=== PATIENT | female | born 1965 | race Caucasian/White ===

== ENCOUNTER 2023-03-26 13:59 | Emergency (ER) | payer BC, SELFPAY ==
[2023-03-26 14:01] VITALS: BP 138/83; PULSE 88; RESP 14; TEMP 37.2; O2SAT 99; BMI 21.9
--- NOTE | 2023-03-26 15:41 | HMH.EDGENADL ---
Discharge Plan Disposition Patient Disposition: Home, Self-Care Chief Complaint: Recheck/Abnormal Lab/Rx Referrals Follow up/Referrals: Provider,Referral, [Primary Care Provider] - See instructions Activity Restrictions/Add. Instructions Additional Instructions/Restrictions: Maintain follow-up with your primary surgeon. Milk drain tubing as described and demonstrated every few hours to maintain patency. Discuss need for drain flushing with either declotting agents, or sterile saline with your surgeon. Call your family doctor to establish care for this visit to the emergency department and schedule follow-up within 48 hours to ensure improvement. If you have any worsening of your condition or any other concerning signs or symptoms, return to the emergency department or your primary care doctor for further evaluation. Clinical Impressions Clinical Impression: Postoperative bleeding from incision Discharge ED Provider: Anton Philip General Adult HPI General Chief complaint: Recheck/Abnormal Lab/Rx Stated complaint: post op 03/20, drain tube not draining Time Seen by Provider: 03/26/23 14:52 Mode of Arrival: Ambulatory Source of Information: Patient Limitations: No Limitations Description of Symptoms (Recalled from ER Triage Doc. by RN): 57 yo F presents to ED with c/o left breast drainage device not draining. pt reports that she had a double masectomy on 03/20/23. yesterday pt began to notice that her grzegorz drainge on left incision was not draining. and pt noticed bruisingand swelling under dressing. History of Present Illness HPI narrative: This is a 57-year-old female with history of right-sided breast carcinoma status post double mastectomy on 03/20 presenting with concern for drain issue. Surgery was done at [facility]. She is in town visiting her daughter. Patient had drains placed in bilateral breast. States that right breast drain is draining normally, left breast drain has stopped draining as of last night, 03/25. She states she feels as if the boob is coming back up on the left, which she knows is abnormal. No fevers, chills, nausea or vomiting. No associated pain, weakness, bleeding elsewhere. Patient states that she called surgery center today, they recommended maintaining follow-up on Thursday, 03/31, however patient came to the emergency department given concern for left-sided breast swelling and decreased drain output. Related Data Allergies Allergy/AdvReac Type Severity Reaction Status Date / Time enoxaparin [From Lovenox] Allergy Verified 03/26/23 15:56 [facility] Disclaimer: The information contained in this section may have been updated after the patient was seen, as this information can be updated by other users. Social History Smoking Status: Current every day smoker alcohol intake: never current occupational status: unemployed Travel in the last 8 weeks: None ROS Obtained: Yes All systems reviewed & no additional complaints except as documented Physical Exam General General appearance: alert, in no apparent distress and other ( ) Head Head exam: atraumatic and normocephalic Eye Eye exam: Present normal appearance, PERRL and EOMI ENT ENT exam: Present mucous membranes moist Neck Neck exam: Present normal inspection, full ROM and trachea midline Chest Chest inspection: Present tenderness and other (Significant bruising bilaterally. Wound dressings clean, dry, intact bilaterally. Right drain site within normal limits draining serosanguineous fluid. Left drain site with nothing in bulb. Sanguinous, dark red drainage at site of drain insertion however) Respiratory Respiratory exam: Absent respiratory distress, wheezes, stridor, accessory muscle use or prolonged expiratory phase Cardiovascular Cardiovascular exam: Present regular rate and normal rhythm Abdominal Exam Abdominal exam: Present soft; Absent distention, tenderness, guarding, rebound, rigidity or normal bowel soun
--- NOTE | 2023-03-26 15:56 | PC.NURSE ---
pts dressing on left side, removed and replaced with sterile technique. 30 cc emptied from left grzegorz drain
[2023-03-26 16:40] VITALS: BP 130/80; PULSE 80; RESP 18; TEMP 36.8; O2SAT 97
== END 2023-03-26 17:03 | disposition home or self-care (01) ==
PROVIDERS: Emergency Provider Emergency Medicine
DX: L76.22 Postprocedural hemorrhage of skin and subcutaneous tissue following other procedure (principal); F17.200 Nicotine dependence, unspecified, uncomplicated; Y83.8 Other surgical procedures as the cause of abnormal reaction of the patient, or of later complication, without mention of misadventure at the time of the procedure; C50.911 Malignant neoplasm of unspecified site of right female breast
CPT/HCPCS: 99282

== ENCOUNTER 2025-04-18 14:40 | Outpatient (CLI) | payer MEDICAID, SELFPAY ==
--- OUTSIDE RECORDS SUMMARY | 2025-04-18 14:43 | XMS_ITS | Clinical Summary ---
Author Organization [facility] nter Address [address] [place] [address] Care Team Providers Care Hat Binder Name Role Phone Maria Teresa Bai Unavailable Unavailable Karen Sparks MD Unavailable [phone] Maria Ines Douglas NP Primary Care Provider [phone] Allergies Active Allergy Reactions Criticality Noted Date Comments Enoxaparin 01/06/2023 Medications levothyroxine (Synthroid, Levoxyl) 200 MCG tablet Take 1 tablet (200 mcg) by mouth before breakfast. Take day of surgery Active ibuprofen 800 MG tablet Take 1 tablet (800 mg) by mouth every 6 (six) hours if needed for mild pain (1-4). Hold day of surgery Active multivitamin-ir oa-mhexthzf-rfe ic acid (Centrum) chewable tablet Chew 1 tablet in the morning. Hold day of surgery Active cyanocobalamin (Vitamin B-12) 1000 MCG tablet Take 1 tablet (1,000 mcg) by mouth in the morning. Hold day of surgery Active Glyxambi 25-5 MG Take 1 tablet by mouth 1 (one) time each day. Hold day of surgery 3 Active albuterol (ProAir HFA) 108 (90 Base) MCG/ACT inhaler Inhale 2 puffs every 4 (four) hours. May use day of surgery Active hydroCHLOROthia zide (HYDRODiuril) 12.5 MG tablet Take 1 tablet (12.5 mg) by mouth if needed each day. Hold day surgery Active potassium chloride CR (Klor-Con M10) 10 MEQ ER tablet Take 1 tablet (10 mEq) by mouth in the morning. Do not crush or chew. Hold day of surgery Active HYDROcodone-lauro taminophen ([place]) 5-325 MG tablet Take 1 tablet by mouth every 6 (six) hours if needed for severe pain (8-10). 30 tablet 3 Active Additional Information Patient not taking.Reported on 06/13/2024 amoxicillin-cla vulanate (Augmentin) 875-125 MG tablet Take 1 tablet by mouth in the morning and at bedtime. 3 Active ergocalciferol (Vitamin D-2) 1.25 MG (64498 UT) capsule Take 1 capsule (1.25 mg) by mouth 1 (one) time per week. 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 given that bilateral mastectomies have been completed with the overall very small size of the invasive component no further risk reduction is indicated with endocrine therapy as risks may outweigh benefits. Will continue surveillance only with clinical exams. She also has the h/o of anal cancer, however on review of chart it was noted CEA was elevated in 2020 which typically is not with squamous histology and she does not smoke. Most recent biopsy of anal canal was negative. 06/13/24: clinically KE on exam Will proceed with LD CT chest for lung cancer screening F/u 6 months Assessment & Plan (05/19/2023 1:43 PM EDT): IDC of the right breast Pathology, stage and NCCN guidelines reviewed today and copies given. given that bilateral mastectomies have been completed with the overall very small size of the invasive component no further risk reduction is indicated with endocrine therapy as risks may outweigh benefits. Will continue surveillance only with clinical exams. She also has the h/o of anal cancer, however on review of chart it was noted CEA was elevated in 2020 which typically is not with squamous histology and she does not smoke. Most recent biopsy of anal canal was negative but on f/u will repeat the CEA and labs. Resolved Problems Problem Noted Date Diagnosed Date Resolved Date Abnormal mammogram 01/21/2023 3 Abnormal finding on breast imaging 01/06/2023 05/19/2023 Family History Medical History Relation Name Comments Lung cancer Father Relation Name Status Comments Father Social History Tobacco Use Types Packs/Day Years Used Date Smoking Tobacco: Every Day Cigarettes Passive Smoke Exposure: Current Smokeless Tobacco: Never Tobacco Cessation:Ready to Q uit: No; Counseling Given: No Alcohol Use Standard Drinks/Week Comments Not Currently 0 (1 standard drink = 0.6 oz pur e alcohol) Mixed drink occasionally Humiliation, Afraid, Rape, and Kick questionnair e Answer Date Recorded Within the last year, have y ou been afraid of your partner or ex-partner? No 04/09/2023 Within the last year, have y ou been humiliated or emotionally abused in other ways by your partner or ex-partner? No Within the last year, have y ou been kicked, hit, slapped, or otherwise physically hurt by your partner or ex-partner? No 04/09/2023 Within the last year, have y ou been raped or forced to have any kind of sexual activity by your partner or ex-partner? No 04/09/2023 Social Connection and Isolation Panel Answer Date Recorded In a typical week, how many times do you talk on the phone with family, friends, or neighbors? Three times a week 04/09/2023 How often do you get togethe r with friends or relatives? Three times a week 04/09/2023 How often do you attend chur ch or holiness services? More than 4 times per year 04/09/2023 Do you belong to any clubs o r organizations such as restoration groups, unions, fraternal or athletic groups, or school groups? No 04/09/2023 How often do you attend meet ings of the clubs or organizations you belong to? More than 4 times per year 04/09/2023 Are you , , di vorced, , never , or living with a partner? 04/09/2023 AUDIT-C Answer Date Recorded Q1: How often do you have a drink containing alcohol? Never 04/08/2023 Q2: How many drinks containi ng alcohol do you have on a typical day when you are drinking? Patient does not drink Q3: How often do you have si x or more drinks on one occasion? Never 04/08/2023 Overall Financial Resource Strain (CARDIA) Answe r Date Recorded How hard is it for you to pa y for the very basics like food, housing, medical care, and heating? Not very hard 04/09/2023 PHQ-2 Answer Date Recorded Patient Health Questionnaire-2 Score 0 04/09/2023 [facility] - Occupational Stress Questionnaire Answer Date Recorded Do you feel stress - tense, restless, nervous, or anxious, or unable to sleep at night because your mind is troubled all the time - these days? Only a little 04/09/2023 Exercise Vital Sign Answer Date Recorde d On average, how many days pe r week do you engage in moderate to strenuous exercise (like a brisk walk)? 0 days 04/08/2023 On average, how many minutes do you engage in exercise at this level? 0 min 04/08/2023 Hunger Vital Sign Answer Date Recorded Within the past 12 months, y ou worried that your food would run out before you got the money to buy more. Never true 04/09/20 23 Within the past 12 months, t he food you bought just didn't last and you didn't have money to get more. Never true 04/09/2023 PRAPARE - Transportation Answer Date Re corded In the past 12 months, has l ack of transportation kept you from medical appointments or from getting medications? No 03/21 In the past 12 months, has l ack of transportation kept you from meetings, work, or from getting things needed for daily living? No 04/09/2023 Comments No Sex and Gender Information Value Date Recorded Sex Assigned at Female 09/25/2021 10:55 AM EST Legal Sex Female 10:55 AM EST Gender Identity Not on file Sexual Orientation Not on file Last Filed Vital Signs Vital Sign Reading Time Taken Comments Blood Pressure 164/74 06/13/2024 1:44 PM EST Pulse 87 06/13/2024 1:44 PM EST Temperature 37.1 C (98.7 F) 06/13/2024 1:44 PM EST Respiratory Rate 18 06/13/2024 1:44 PM EST Oxygen Saturation 94% 06/13/2024 1:44 PM EST Inhaled Oxygen Concentration - - Weight 67.9 kg (149 lb 12.5 oz) 06/13/2024 1:44 PM EST Height 165.1 cm (5' 5 ) 04/23/2023 3:22 PM EDT Body Mass Index 24.92 04/23/2023 3:22 PM EDT Plan of Treatment Health Maintenance Due Date Last Done Comments CT Colonography 1965 ColoGuard Screening 1965 Colonoscopy 1965 Colorectal Cancer Screening 1965 FIT-DNA 1965 FIT 1965 FOBT 1965 Sigmoidoscopy 1965 MMR Vaccines (1 of 1 - Stand nancy series) 1964 DTaP/Tdap/Td Vaccines (1 - Tdap) 1982 Pneumococcal Vaccine (1 of 2 - PCV) 1982 Pap Smear 1984 Cervical Cancer Screening 1993 HPV/Cotest 1993 Influenza Vaccine (#1) 2025 RSV 60+ and patient s (1 - 1-dose 75+ series) 2038 RSV under 20 month Aged Out No longer eligible based on patient's age to complete this topic Additional Health Concerns Infection Onset Date Last Indicated MRSA (other) Comment:Left breast + MRSA 04/08/23 Alonso Nitin Sanchez RN 04/13/23 8:25 AM 04/08/2023 04/08/2023 Insurance [phone] (Work) [address] [address] [facility] MEDICAID Advance Directives * Full Code (Latest Code Status on File) Date Activated Date Inactivated Comments 04/08/2023 10:17 PM 04/10/2023 6:32 PM * Full Code Date Activated Date Inactivated Comments 03/20/2023 11:56 AM 03/20/2023 3:28 PM * Full Code Date Activated Date Inactivated Comments 01/29/2023 10:04 AM 01/29/2023 1:28 PM * Full Code Date Activated Date Inactivated Comments 01/16/2023 10:05 AM 01/16/2023 1:53 PM Care Teams Hat Binder Relationship Specialty Start Date End Date Maria Ines Douglas NP [address] [facility], [facility] [place] [address] PCP - General Family Medicine 06/13/24 Maria Teresa Bai [address] [place] [address] Nurse Navigator 04/03/23 Karen Sparks MD [address] [place] [address] Consulting Physician Oncology 04/23/23
--- OUTSIDE RECORDS SUMMARY | 2025-04-18 14:43 | XMS_ITS | Encounter Summary ---
Author Organization [facility] Address [address] [place] [address] Care Team Providers Care Pack Changer Name Role Phone Armaan Stafford DO Unavailable [phone] Edgar Bishop MD Primary Care Provider [phone] Nelsy Casey APRN Primary Care Provider [phone] Jg Russo MD Unavailable [phone] Encounter Details Date Type Department Care Team (Late st Contact Info) Description 04/03/2021 Lab Requisition [facility] [address] [place] [address] Jg Russo MD [address] [facility] [address] [place] [id number] Polyp of colon Social History Tobacco Use Types Packs/Day Years Used Date Smoking Tobacco: Never Assessed Comments Unknown Sex and Gender Information Value Date Recorded Sex Assigned at Not on file Legal Sex Female 8:23 PM EDT Gender Identity Not on file Sexual Orientation Not on file COVID-19 Exposure Response Date Recorded In the last month, have you been in contact with someone who was confirmed or suspected to have Coronavirus / COVID-19? No / Unsure 04/05/2021 8:12 AM EDT documented as of this encounter Plan of Treatment Not on file documented as of this encounter Procedures Procedure Name Priority Date/Time Associated Diagnosis Comments SURGICAL PATHOLOGY CONSULT Routine 04/03/2021 11:58 AM EDT Polyp of colon documented in this encounter Results * Surgical Pathology Consult (04/03/2021 11:58 AM EDT) Case Report Sugical Pathology Consult Case: [id number] Authorizing Provider: Jg Russo MD Collected: 04/03/2021 1158 Ordering Location: [facility] Lab Received: 04/03/2021 1200 Pathologist: Margarette Carrasquillo MD Specimens: A) - Colon, [id number] B) - Rectal, S2 C) - Rectal, [id number] 1 5:53 PM EDT [facility] Final Diagnosis A. OUTSIDE CASE [id number]; 02/06/2017: ASCENDING COLON POLYP, BIOPSY (SPECIMEN 1): - TUBULAR ADENOMA. - NEGATIVE FOR HIGH GRADE DYSPLASIA. TRANSVERSE COLON POLYP, BIOPSY (SPECIMEN 2): - HYPERPLASTIC POLYP. B. OUTSIDE CASE [id number]; 10/01/2020: TRANSVERSE COLON POLYP, BIOPSY (SPECIMEN 1): - HYPERPLASTIC POLYP. RECTAL POLYP, BIOPSY (SPECIMEN 2): - HYPERPLASTIC POLYP. C. OUTSIDE CASE [id number]; 12/12/2020: DISTAL ANAL RECTAL MASS, BIOPSY (SPECIMEN 1): - ATYPICAL EPITHELIOID PROLIFERATION WITH SIGNIFICANT CAUTERY ARTIFACT, SEE NOTE. DISTAL ANAL RECTAL MASS, BIOPSY (SPECIMEN 2): - HYPERPLASTIC SURFACE CHANGES AND CAUTERY ARTIFACT. 1 5:53 PM EDT [facility] at 1753 EDT Comment Block 1FS (case [id number]) shows irregular nests of epithelial-appea ring cells with hyperchromatic nuclei and nuclear pleomorphism in the submucosa/muscul luisa propria. The findings are highly suspicious for malignancy. However, interpretation is limited by the significant cautery artifact and a more definitive diagnosis cannot be rendered. Clinical and radiologic correlation is required. 1 5:53 PM EDT [facility] Clinical Information Rectal and colon polyps 1 5:53 PM EDT [facility] Gross Description A. [id number] Received along with a corresponding pathology report from [facility] are 2 slides labeled outside case: [id number] collected on 02/06/2017. B. [id number] Received along with a corresponding pathology report from [facility] are 2 slides labeled outside case: [id number] collected on 10/01/2020. C. [id number] Received along with a corresponding pathology report from [facility] are 3 slides labeled outside case: [id number] collected on 12/12/2020. 1 5:53 PM EDT [facility] Intradepartmental Consultation with Agreement Dr. Vladislav Nur and Dr. Margret Bradfrod have reviewed case [id number] and agree with the diagnosis of atypia. 1 5:53 PM EDT [facility] Tissue Colon structure / Unknown 04/03/2021 11:58 AM EDT 04/03/2021 12:00 PM EDT Tissue specimen (specimen) Specimen from rectum / Unknown 04/03/2021 11:58 AM EDT 04/03/2021 12:00 PM EDT Tissue specimen (specimen) Specimen from rectum / Unknown 04/03/2021 11:58 AM EDT 04/03/2021 12:00 PM EDT Jg Russo MD LAB PATHOLOGY ORDERABLES Fin al Result Performing Organization Address City/State/[facility] Co de Phone Number [facility]ALTH[facility]ARE [facility] [address] [place] [address] documented in this encounter Visit Diagnoses Diagnosis Polyp of colon Benign neoplasm of colon documented in this encounter Care Teams Pack Changer Relationship Specialty Start Date End Date Edgar Bishop MD [address] [place] [address] PCP - General 04/05/21 04/10/21 Nelsy Casey APRN [address] [place] [address] [address] [place] [id number] PCP - General 04/11/21 Armaan Stafford DO [address] [place] [address] Referring Physician 04/05/21 Jg Russo MD [address] [address] Surgeon Colon and Rectal Surgery 06/05/21 documented as of this encounter
--- OUTSIDE RECORDS SUMMARY | 2025-04-18 14:43 | XMS_ITS | Encounter Summary ---
Author Organization [facility] Address [address] [place] [address] Care Team Providers Care Wastewater Analyst Name Role Phone Armaan Stafford DO Unavailable [phone] Edgar Bishop MD Primary Care Provider [phone] Nelsy Casey APRN Primary Care Provider [phone] Jg Russo MD Unavailable [phone] Encounter Details Date Type Department Care Team (Late st Contact Info) Description 03/29/2021 Lab Requisition [facility] [address] [place] [address] Jg Russo MD [address] [facility] [address] [place] [id number] Other specified diseases of anus and rectum Social History Tobacco Use Types Packs/Day Years Used Date Smoking Tobacco: Never Assessed Comments Unknown Sex and Gender Information Value Date Recorded Sex Assigned at Not on file Legal Sex Female 8:23 PM EDT Gender Identity Not on file Sexual Orientation Not on file documented as of this encounter Plan of Treatment Not on file documented as of this encounter Procedures Procedure Name Priority Date/Time Associated Diagnosis Comments SURGICAL PATHOLOGY CONSULT Routine 03/29/2021 11:10 AM EDT Other specified diseases of anus and rectum documented in this encounter Results * Surgical Pathology Consult (03/29/2021 11:10 AM EDT) Case Report Sugical Pathology Consult Case: [id number] Authorizing Provider: Jg Russo MD Collected: 03/29/2021 1110 Ordering Location: [facility] Lab Received: 03/29/2021 1111 Pathologist: Vladislav Nur MD Specimen: Perineal Biopsy, [id number] 04/03/2021 4:43 PM EDT [facility] Final Diagnosis PERIANAL MASS, BIOPSY (OUTSIDE: [id number], COLLECTION: 01/18/2021): - INVASIVE SQUAMOUS CELL CARCINOMA, WITH BASALOID FEATURES 04/03/2021 4:43 PM EDT [facility] at 1643 EDT Clinical Information Perianal mass 04/03/2021 4:43 PM EDT [facility] Microscopic Description The submitted P16 immunohistochemical stain is interpreted as positive (diffuse, block-like). Controls are adequate. 04/03/2021 4:43 PM EDT [facility] Gross Description A. [id number] Received along with a corresponding pathology report from [facility] are 2 slide(s) labeled outside case: [id number] collected on 01/18/2021. 04/03/2021 4:43 PM EDT [facility] Tissue Structure of perineal body / Unknown 03/29/2021 11:10 AM EDT 03/29/2021 11:11 AM EDT us Jg Russo MD LAB PATHOLOGY ORDERABLES Fin al Result Performing Organization Address City/State/[facility] Co de Phone Number [facility]ARE [facility] [address] [place] [address] documented in this encounter Visit Diagnoses Diagnosis Other specified diseases of anus and rectum documented in this encounter Care Teams Wastewater Analyst Relationship Specialty Start Date End Date Edgar Bishop MD [address] [place] [address] PCP - General 04/05/21 04/10/21 Nelsy Casey APRN [address] [place] [address] [address] [place] [id number] PCP - General 04/11/21 Armaan Stafford DO [address] [place] [address] Referring Physician 04/05/21 Jg Russo MD [address] [id number] Surgeon Colon and Rectal Surgery 06/05/21 documented as of this encounter
--- OUTSIDE RECORDS SUMMARY | 2025-04-18 14:43 | XMS_ITS ---
Author Organization [facility] nter Address [address] [place] [address] Care Team Providers Care Journeyman Pipefitter Name Role Phone Maria Teresa Bai Unavailable Unavailable Karen Sparks MD Unavailable [phone] Maria Ines Douglas NP Primary Care Provider [phone] Active Problems Problem Noted Date Diagnosed Date History of anal cancer 05/19/2023 Abscess 04/08/2023 Malignant neoplasm of overla pping sites of right breast in female, estrogen receptor positive 03/16/2023 Cancer Staging:Pathologic stage from 03/20/2023:Stage IA(pT1a, pN0(sn), cM0, G2, ER+, NC+, HER2-) - Signed by Karen Sparks MD on 05/19/2023 Clinical stage from 05/11/2024:Stage IA(cT1b, cN0, cM0, G2, ER+, NC+, HER2-) - Signed by Rodrigo Diana MD [...] f/u will repeat the CEA and labs. Current Treatment and Therapy Plans No current plan information found. Past Treatment and Therapy Plans No past plan information found. Lifetime Dose Tracking * Chemical Lifetime Dose Automatic Entry Manual Entr y Mitomycin 10.52 mg/m2 (20 mg) 0 mg/m2 (0 mg) 10.52 mg/m2 (20 mg) CTDIvol 14.72 mGy 14.72 mGy 0 mGy Resolved Problems Problem Noted Date Diagnosed Date Resolved Date Abnormal mammogram 01/21/2023 3 Abnormal finding on breast imaging 01/06/2023 05/19/2023
--- OUTSIDE RECORDS SUMMARY | 2025-04-18 14:43 | XMS_ITS | Clinical Summary ---
Author Organization [facility] Address [address] [place] [address] Care Team Providers Care Continuous Towel Roller Name Role Phone Armaan Stafford DO Unavailable [phone] Nelsy Casey APRN Primary Care Provider [phone] Jg Russo MD Unavailable [phone] Allergies Active Allergy Reactions Criticality Noted Date Comments Enoxaparin Other - please docum ent in the comment field Low 04/05/2021 Severe bruising, tongue turned black, muscle weakness Other Other - please docum ent in the comment field Low 06/06/2021 Adhesives on surgical tape causes blisters Medications levothyroxine (Synthroid, Levoxyl) 150 MCG tablet Take 150 mcg by mouth 1 (one) time each day before breakfast. Active metFORMIN XR (Glucophage-XR) 500 MG 24 hr tablet Take 500 mg by mouth 1 (one) time each day with dinner. Do not crush, chew, or split. Active hydroCHLOROthia zide (HYDRODiuril) 25 MG tablet Take 25 mg by mouth 1 (one) time each day. Active albuterol 0.63 MG/3ML nebulizer solution Take 0.63 mg by nebulization every 6 (six) hours if needed for wheezing. Active ibuprofen 800 MG tablet Take 800 mg by mouth 2 (two) times a day. Active aspirin 325 MG tablet Take 325 mg by mouth 1 (one) time each day. Active Active Problems Problem Noted Date Diagnosed Date HTN (hypertension) 08/01/2021 High cholesterol 08/01/2021 Hypothyroidism 08/01/2021 Chronic obstructive pulmonary disease 08/01/2021 Asthma 08/01/2021 Anal cancer 04/17/2021 Family History Medical History Relation Name Comments Lung cancer Father Relation Name Status Comments Father Social History Tobacco Use Types Packs/Day Years Used Date Smoking Tobacco: Every Day Cigarettes 0.5 46 Smokeless Tobacco: Never Alcohol Use Standard Drinks/Week Comments Not Currently 0 (1 standard drink = 0.6 oz pur e alcohol) Comments Unknown Sex and Gender Information Value Date Recorded Sex Assigned at Not on file Legal Sex Female 8:23 PM EDT Gender Identity Not on file Sexual Orientation Not on file Last Filed Vital Signs Vital Sign Reading Time Taken Comments Blood Pressure 105/61 08/02/2021 3:05 PM EST Pulse 53 08/02/2021 3:05 PM EST Temperature 36.5 C (97.7 F) 08/02/2021 2:50 PM EST Respiratory Rate 13 08/02/2021 3:05 PM EST Oxygen Saturation 93% 08/02/2021 3:05 PM EST Inhaled Oxygen Concentration - - Weight 78.9 kg (174 lb) 08/02/2021 12:38 PM EST Height 165.1 cm (5' 5 ) 08/02/2021 12:38 PM EST Body Mass Index 28.96 08/02/2021 12:38 PM EST Plan of Treatment Health Maintenance Due Date Last Done Comments [facility]-Depression Screening 1963 [facility]-Infant/Child/Adol SDOH Screenings 1963 [facility]- SDOH Screenings 1981 [facility]-Adult SDOH Screenings 1981 [facility]-DTaP,Tdap,and Td Vaccine s (1 - Tdap) 1982 CT Colonography 2008 Colonoscopy 2008 FIT-DNA 2008 FIT 2008 FOBT 2008 Sigmoidoscopy 2008 [facility]-Colorectal Cancer Screening 2008 [facility]-Pneumococcal Vaccine: 50 + Years (1 of 1 - PCV) 2013 [facility]-Zoster Vaccines (1 of 2) 2013 [facility]-Pap Smear 04/05/2024 04/05/2021 [id number] Vaccine ( - 2023- season) 2025 [facility]-Influenza Vaccine (#1) 2025 [facility]-Cervical Cancer Screening 04/05/2026 [facility]-HPV/Cotest 04/05/2026 04/05/2021, 04/05/2021 [facility]-RSV Vaccine: 60+ Years o r (1 - 1-dose 75+ series) 2038 HPV Vaccines Aged Out No longer eligi ble based on patient's age to complete this topic [facility]-HIB Vaccines Aged Out No longer e ligible based on patient's age to complete this topic [facility]-Hepatitis A Vaccines Aged Out No longer eligible based on patient's age to complete this topic UKY-IPV Vaccines Aged Out No longer e ligible based on patient's age to complete this topic [facility]-Rotavirus Vaccines Aged Out No lo nger eligible based on patient's age to complete this topic Procedures Procedure Name Priority Date/Time Associated Diagnosis Comments PAP TEST - CYTOLOGY Routine 04/05/2021 1 1:04 AM EDT Anal cancer (CMS/HCC) from Last 3 Months or Most Recently Relevant to Health Maintenance Results * (ABNORMAL) Pap Test (04/05/2021 11:04 AM EDT) Case Report Cytology Case: [id number] Authorizing Provider: Zulay Rivera MD Collected: 04/05/2021 1104 Ordering Location: [facility] Gynecology Received: 04/08/2021 0944 First Screen: LEE Kennedy Pathologist: Sonny Andrade MD Specimen: ThinPrep Pap Test, Liquid-Based Cervical/Vaginal, CERVICAL/VAGINAL 04/22/2021 4:46 PM EDT [facility] Interpretation LOW GRADE SQUAMOUS INTRAEPITHELIAL LESION (LSIL)(A) 04/22/2021 4:46 PM EDT [facility] at 1646 EDT Other Findings Shift in yuliet suggestive of bacterial vaginosis. 04/22/2021 4:46 PM EDT [facility] Specimen Adequacy Satisfactory for evaluation; endocervical/lopez sformation zone component present. Slide imaged by the ThinPrep Imaging system and selected 22 [address] reviewed then full manual screening. 04/22/2021 4:46 PM EDT [facility] Cervical cytology is a screening test primarily for squamous cancers and precursors and has associated false negative and positive results. New technologies such as liquid based sampling may decrease but will not eliminate all false negative results. Regular screening and follow-up of unexplained clinical signs and symptoms are recommended to minimize false negative results. Please see the ASCCP website (www.asccp.org)fo r followup recommendations. If HPV testing was requested, correlation with the results is suggested (please call Microbiology at [phone] for results). 04/22/2021 4:46 PM EDT [facility] Menstrual Status Post-Menopausal 10/2020 4:46 PM EDT [facility] Contraceptive History Not Applicable 04/22/2021 4:46 PM EDT [facility] Last Menstrual Period 04/05/2002 04/22/2021 4:46 PM EDT [facility] Screening Type Routine Screen 2020 4:46 PM EDT [facility] High Risk? No 04/22/2021 4:46 PM EDT [facility] HPV Testing Requested? Request HPV Testing Regardless of Pap Test Findings 04/22/2021 4:46 PM EDT [facility] Previous Cancer History Yes 04/22/2021 4:46 PM EDT [facility] Comment:Rectal Treatment History Chemotherapy Radiation Therapy 04/22/2021 4:46 PM EDT [facility] Swab Vaginal and cervical cytologic material / Unknown Non-blood Collection / Unknown 04/05/2021 11:04 AM EDT 04/08/2021 9:44 AM EDT Zulay Rivera MD LAB CYTOLOGY ORDERABLES Final Result [facility] [address] [place] [address] from Last 3 Months or Most Recently Relevant to Health Maintenance Insurance TI[employer] Care Teams Continuous Towel Roller Relationship Specialty Start Date End Date Nelsy Casey, EDUCATIONAL DIAGNOSTICIAN [address] [place] [id number] PCP - General 04/11/21 Armaan Stafford DO [address] [place] [address] Referring Physician 04/05/21 Jg Russo MD [address] [address] Surgeon Colon and Rectal Surgery 06/05/21
--- OUTSIDE RECORDS SUMMARY | 2025-04-18 14:43 | XMS_ITS | Encounter Summary ---
Author Organization [facility] nter Address [address] [place] [address] Care Team Providers Care Service Rig Operator Name Role Phone Irina Samantha Ferrer LOCKS INSPECTOR Primary Care Provider [phone] Maria Teresa Bai Unavailable Unavailable Karen Sparks MD Unavailable [phone] Maria Ines Douglas LOCKS INSPECTOR Primary Care Provider [phone] Encounter Details Date Type Department Care Team (Late st Contact Info) Description 01/28/2023 Telephone [facility] [address] 3[address] [place] [id number] Fina Fajardo, RN [address] [place] [address] Social History Tobacco Use Types Packs/Day Years Used Date Smoking Tobacco: Every Day Cigarettes Smokeless Tobacco: Never Alcohol Use Standard Drinks/Week Comments Yes 0 (1 standard drink = 0.6 oz pur e alcohol) Mixed drink occasionally Comments No Sex and Gender Information Value Date Recorded Sex Assigned at Female 09/25/2021 10:55 AM EST Legal Sex Female 10:55 AM EST Gender Identity Not on file Sexual Orientation Not on file COVID-19 Exposure Response Date Recorded In the last 10 days, have yo u been in contact with someone who was confirmed or suspected to have Coronavirus/COVID-19? No / Unsure 01/29/2023 10:01 AM EDT documented as of this encounter Plan of Treatment Not on file documented as of this encounter Visit Diagnoses Not on filedocumented in this encounter Additional Health Concerns Infection Onset Date Last Indicated Resolved Time MRSA (other) Comment:Left breast + MRSA 04/08/23 Alonso Sanchez RN 04/13/23 8:25 AM 04/08/2023 04/08/2023 documented as of this encounter Care Teams Service Rig Operator Relationship Specialty Start Date End Date Samantha Arevalo NP [address] [place] [address] PCP - General Family Medicine 01/16/23 06/12/24 Maria Ines Douglas NP [address] [place] [address] PCP - General Family Medicine 06/13/24 Maria Teresa Bai [address] [place] [address] Nurse Navigator 04/03/23 Karen Sparks MD [address] [place] [address] Consulting Physician Oncology 04/23/23 documented as of this encounter
== END 2025-04-18 23:59 | disposition home or self-care (01) ==
LOC: LAB 14:41
PROVIDERS: PCP Nurse Practitioner Family; Visit Provider Internal Medicine
DX: E78.5 Hyperlipidemia, unspecified (principal); I10 Essential (primary) hypertension

== ENCOUNTER 2025-04-19 10:08 | Outpatient (CLI) | payer MEDICAID, SELFPAY ==
--- OUTSIDE RECORDS SUMMARY | 2023-11-13 04:45 | XMS_ITS ---
Author Organization [facility] Address [address] [place] [address] Care Team Providers Care Engine Generator Assembler Name Role Phone Samantha Arevalo Primary Care Provider REASON FOR VISIT follow up NS Social History Sex Assigned At : Social History Observation Description Sex Assigned At Female Encounters Encounter Location Date Provider Diagnosis [facility] [place] [address] [place] [phone] 11/13/2023 Samantha Arevalo Plan Of Treatment No Information Progress Notes * Anjelica GALVEZ EDOB:1965 ( 59 yo F)Acc No.[id number]:11/13/2023 Progress Notes Patient: Anjelica KIRKPATRICK Provider: Mercy Arevalo APRN :1965 A ge:58 Y S ex:Female Date:11/13/2023 Address:[address] [place] [phone] Subjective: * Chief Complaints: * 1 . follow up NS. * Medical History: Objective: * Vitals: Assessment: Plan: * Treatment: * Billing Information: * Visit Code: * Procedure Codes: * Electronic signature of Maria Elena Arevalo on 04/19/2025 at 10:44 AM EDT Sign off status: Pending * Provider: Mercy Arevalo APRN Date: 0 11/13/2023 Generated for Printi ng/Faxing/eTransmitting on: 1 10:44 AM EDT
--- OUTSIDE RECORDS SUMMARY | 2024-01-08 05:15 | XMS_ITS ---
Author Organization [facility] Address [address] [place] [address] [address] [place] [address] Care Team Providers Care Hand Laminator Name Role Phone Irina Samantha Primary Care Provider [phone] Allergies No Known Allergies REASON FOR VISIT [...] phone, visiting friends or family, going to orthodox or club meetings) 3 to 5 times a week How stressed are you? Stress is when someone feels tense, nervous, anxious, or cant sleep at night because their mind is troubled Not at all In the past year have you sp ent more than 2 nights in a row in a retirement, correction, care home center, or juvenile correctional facility? No Do [...] Negative Encounters Encounter Location Date Provider Diagnosis [facility] [address] [place] [phone] 01/08/2024 Samantha Arevalo Encounter for screening for malignant neoplasm of cervix Z12.4 Assessments Encounter Date Diagnosis (ICD Code) Assessment Notes Treatment Notes Treatment Clinical Notes Section Notes 01/08/2024 Encounter for screening for malignant neoplasm of cervix (ICD-10 - Z12.4) Importance of cancer screenings for early detection explained to patient. 01/08/2024 Other Patient informed that [facility] has oncall providers available 09/02 by dialing regular clinic number. Also informed patient to sign up for the patient portal and explained process and advantages of using the portal including communication with provider, refill requests, review labs, etc. Pt also reminded to bring all medications to each visit. Also reviewed current [facility] and state guidelines and recommendations for preventing spread of COVID19. V/U Plan Of Treatment Treatment Notes Assessment Notes Encounter for screening for malignant neoplasm of cervix Importance of cancer screenings for edin y detection explained to patient. Other Patient informed that [facility] has oncall providers available 09/02 by dialing regular clinic number. Also informed patient to sign up for the patient portal and explained process and advantages of using the portal including communication with provider, refill requests, review labs, etc. Pt also reminded to bring all medications to each visit. Also reviewed current [facility] and state guidelines and recommendations for preventing spread of COVID19. 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 [...] disease with acute lower respiratory infection. * [employer] History: A bnormal pap smear N ONE. L AST MAMMOGRAM 0 01/04/2015 [facility], pt declines mammo at this time. 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 Stress is when someone feels tense, nervous, anxious, or cant sleep at night because their mind is troubled N ot at all I n the past year have you spent more than 2 nights in a row in a retirement, correction, care home center, or juvenile correctional facility? N o [...] 2. O thers Notes: Patient informed that [facility] has oncall providers available 09/02 by [...] Medicine: WOMEN'S YOUR PREVENTIVE WELLNESS PLAN: B NV, Height, and Weight: My BMI, height, and [...] and urged to quit. 0 01/08/2024 CALL [phone] Relapse prevention: D iscussed the importance of a supportive environment and helped identify them. C are goal follow-up Counseling for Dietary Consulatation Provided Y es Avoid sugary drinks and snacks. Counseling for BMI Management Provided?Yes H igh Risk Sexual Behavior N o high risk sexual behavior. 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
[2025-04-19 10:25] LABS: Hematocrit 49.1 % (37.0-47.0); Hemoglobin 17.5 g/dL (12.2-16.2); Immature Granulocytes % 0.3 %; Mean Corpuscular HGB Conc 35.6 g/dL (31.8-35.4); Mean Corpuscular Hemoglobin 34.5 pg (27.0-31.2); Mean Corpuscular Volume 96.8 fl (81-99); Nucleated Red Blood Cells % 0 %; Platelet Count 210 K/mm3 (142-424); Red Blood Count 5.07 M/mm3 (4.20-5.40); Red Cell Distribution Width-SD 43.8 fL; White Blood Count 7.6 K/mm3 (4.8-10.8)
--- OUTSIDE RECORDS SUMMARY | 2025-04-19 10:45 | XMS_ITS ---
Author Organization [facility] nter Address [address] [place] [address] Care Team Providers Care Survey Coordinator Name Role Phone Maria Teresa Bai Unavailable Unavailable Karen Sparks MD Unavailable [phone] Maria Ines Douglas NP Primary Care Provider [phone] Active Problems Problem Noted Date Diagnosed Date History of anal cancer 05/19/2023 Abscess 04/08/2023 Malignant neoplasm of overla pping sites of right breast in female, estrogen receptor positive 03/16/2023 Cancer Staging:Pathologic stage from 03/20/2023:Stage IA(pT1a, pN0(sn), cM0, G2, ER+, MD+, HER2-) - Signed by Karen Sparks MD on 05/19/2023 Clinical stage from 05/11/2024:Stage IA(cT1b, cN0, cM0, G2, ER+, MD+, HER2-) - Signed by Rodrigo Diana MD [...]
--- OUTSIDE RECORDS SUMMARY | 2025-04-19 10:45 | XMS_ITS | Clinical Summary ---
Author Organization [facility] Address [address] [place] [address] Care Team Providers Care Compliance Field Technician Name Role Phone Armaan Stafford DO Unavailable [phone] Nelsy Casey APRN Primary Care Provider [phone] Jg Russo MD Unavailable [phone] Allergies Active Allergy Reactions Criticality Noted Date [...] Date Last Done Comments [facility]-Depression Screening 1963 [facility]-/Child/Adol SDOH Screenings 1963 [facility]- SDOH Screenings 1981 [facility]-Adult SDOH Screenings 1981 [facility]-DTaP,Tdap,and Td Vaccine s (1 - Tdap) 1982 CT Colonography 2008 Colonoscopy 2008 FIT-DNA 2008 FIT 2008 FOBT 2008 Sigmoidoscopy 2008 [facility]-Colorectal Cancer Screening 2008 [facility]-Pneumococcal Vaccine: 50 + Years (1 of 1 - PCV) 2013 [facility]-Zoster Vaccines (1 of 2) 2013 [facility]-Pap Smear 04/05/2024 04/05/2021 [id number] Vaccine ( - 2023- season) 2025 [facility]-Influenza [...] 11:04 AM EDT) Case Report Cytology Case: [id number] Authorizing Provider: Zulay Rivera MD Collected: 04/05/2021 1104 Ordering Location: [facility] Gynecology Received: 04/08/2021 0944 First Screen: LEE Kennedy Pathologist: Sonny Andrade MD Specimen: ThinPrep Pap Test, Liquid-Based Cervical/Vaginal, CERVICAL/VAGINAL 04/22/2021 4:46 PM EDT [facility] Interpretation LOW GRADE SQUAMOUS INTRAEPITHELIAL LESION (LSIL)(A) 04/22/2021 4:46 PM EDT [facility] at 1646 EDT Other Findings Shift in yuliet suggestive of bacterial vaginosis. 04/22/2021 4:46 PM EDT [facility] Specimen Adequacy Satisfactory for evaluation; endocervical/lopez [...] results is suggested (please call Microbiology at [phone] for results). 04/22/2021 4:46 PM EDT [facility] Menstrual Status Post-Menopausal 10/2020 4:46 PM EDT [facility] Contraceptive History Not Applicable 04/22/2021 4:46 PM EDT [facility] Last Menstrual Period 04/05/2002 04/22/2021 4:46 PM EDT [facility] Screening Type Routine Screen 2020 4:46 PM EDT [facility] High Risk? No 04/22/2021 4:46 PM EDT [facility] HPV Testing Requested? Request HPV Testing Regardless of Pap Test Findings 04/22/2021 4:46 PM EDT [facility] Previous Cancer History Yes 04/22/2021 4:46 PM EDT [facility] Comment:Rectal Treatment History Chemotherapy Radiation Therapy 04/22/2021 4:46 PM EDT [facility] Swab Vaginal and cervical cytologic material / Unknown Non-blood Collection / Unknown 04/05/2021 11:04 AM EDT 04/08/2021 9:44 AM EDT Zulay Rivera MD LAB CYTOLOGY ORDERABLES Final Result [facility] [address] [place] [address] from Last 3 Months or Most Recently Relevant to Health Maintenance Insurance TIARA Care Teams Compliance Field Technician Relationship Specialty Start Date End Date Nelsy Casey, DEFECT CUTTER [address] [place] [address] PCP - General 04/11/21 Armaan Stafford DO [address] [place] [address] Referring Physician 04/05/21 Jg Russo MD [address] [address] Surgeon Colon and Rectal Surgery 06/05/21
--- OUTSIDE RECORDS SUMMARY | 2025-04-19 10:45 | XMS_ITS | Clinical Summary ---
Author Organization [facility] nter Address [address] [place] [address] Care Team Providers Care Gifts Officer Name Role Phone Maria Teresa Bai Unavailable Unavailable Karen Sparks MD Unavailable Maria Ines Douglas NP Primary Care Provider [phone] Allergies Active Allergy Reactions Criticality Noted Date Comments Enoxaparin 01/06/2023 Medications levothyroxine (Synthroid, Levoxyl) 200 MCG tablet Take 1 tablet (200 mcg) by mouth before breakfast. Take day of surgery Active ibuprofen 800 MG tablet Take 1 tablet (800 mg) by mouth every 6 (six) hours if needed for mild pain (1-4). Hold day of surgery Active multivitamin-ir wf-gedwubfk-qwf ic acid (Centrum) chewable tablet Chew 1 [...] Hold day of surgery Active HYDROcodone-lauro taminophen ([place]) 5-325 MG tablet Take 1 tablet by mouth every 6 (six) hours if needed for severe pain (8-10). 30 tablet 3 Active Additional Information Patient not taking.Reported on 06/13/2024 amoxicillin-cla vulanate (Augmentin) 875-125 MG tablet Take 1 tablet by mouth in the morning and at bedtime. 3 Active ergocalciferol (Vitamin D-2) 1.25 MG (34406 UT) capsule Take 1 capsule (1.25 mg) by mouth 1 (one) time per week. Active Active Problems Problem Noted Date Diagnosed Date History of anal cancer 05/19/2023 Abscess 04/08/2023 Malignant neoplasm of overla pping sites of right breast in female, estrogen receptor positive 03/16/2023 Cancer Staging:Pathologic stage from 03/20/2023:Stage IA(pT1a, pN0(sn), cM0, G2, ER+, CA+, HER2-) - Signed by Karen Sparks MD on 05/19/2023 Clinical stage from 05/11/2024:Stage IA(cT1b, cN0, cM0, G2, ER+, CA+, HER2-) - Signed by Rodrigo Diana MD [...] often do you attend chur ch or jehovah's witness services? More than 4 times per year 04/09/2023 Do you belong to any clubs o r organizations such as confucianism groups, unions, fraternal or athletic groups, or [...] Recorded Patient Health Questionnaire-2 Score 0 04/09/2023 [facility] - Occupational Stress Questionnaire Answer Date Recorded [...] RN 04/13/23 8:25 AM 04/08/2023 04/08/2023 Insurance [phone] (Work) [address] [address] [facility] [place] [address] Advance Directives * Full Code (Latest Code [...] 10:05 AM 01/16/2023 1:53 PM Care Teams Gifts Officer Relationship Specialty Start Date End Date Maria Ines Douglas NP [address] [facility] [place] [address] PCP - General Family Medicine 06/13/24 Maria Teresa Bai [address] [place] [address] Nurse Navigator 04/03/23 Karen Sparks MD [address] [place] [address] Consulting Physician Oncology 04/23/23
--- OUTSIDE RECORDS SUMMARY | 2025-04-19 10:45 | XMS_ITS | Encounter Summary ---
Author Organization [facility] nter Address [address] [place] [address] Care Team Providers Care Sales Clerk Supervisor Name Role Phone Irina Samantha Ferrer OIL HOUSE ATTENDANT Primary Care Provider [phone] Maria Teresa Bai Unavailable Unavailable Karen Sparks MD Unavailable [phone] Maria Ines Douglas OIL HOUSE ATTENDANT Primary Care Provider [phone] Encounter Details Date Type Department Care Team (Late st Contact Info) Description 01/28/[address] 3[address] [place] [phone] Fina Fajardo, RN [address] [place] [address] Social History Tobacco Use Types Packs/Day Years [...] documented as of this encounter Care Teams Sales Clerk Supervisor Relationship Specialty Start Date End Date Samantha Arevalo NP [address] [place] [address] PCP - General Family Medicine 01/16/23 06/12/24 Maria Ines Douglas NP [address] [place] [address] PCP - General Family Medicine 06/13/24 Maria Teresa Bai [address] [place] [address] Nurse Navigator 04/03/23 Karen Sparks MD [address] [facility] [place] [address] Consulting Physician Oncology 04/23/23 documented as of this encounter
--- OUTSIDE RECORDS SUMMARY | 2025-04-19 10:45 | XMS_ITS | Patient Health Record ---
Author Organization [facility] Address [address] [place] [address] [address] [place] [address] Care Team Providers Care Wardrobe Supervisor Name Role Phone Samantha Arevalo Primary Care Provider [phone] Allergies No Known Allergies Reason For Referral No Information Medications Medication SIG (Take, Route, Frequency, Duration) Notes Start Date End Date Status DULoxetine HCl 30 MG 1 capsule Orally Tw ice a day; Duration: 90 days 03/08/2018 Unknown Synthroid 200 MCG 1 tablet on an empty stomach in the morning Orally Once a day; Duration: 90 days Unknown Levothyroxine Sodium 25 MCG 1 tablet in the morning on an empty stomach Orally Once a day; Duration: 90 days Active glipiZIDE 5 MG 1 tablet 30 minutes before breakfast Orally Once a day; Duration: 90 days Active metFORMIN HCl 1000 MG 1 tablet Orally tw ice a day with meals; Duration: 90 days Active ProAir HFA 108 (90 Base) MCG/ACT 2 puffs as needed Inhalation every 4 hrs; Duration: 90 days 12/28/2020 Unknown Metoprolol Succinate ER 50 MG 1 tablet Orally Once a day; Duration: 90 days 04/13/2019 Unknown Multivitamin Plus Iron Adult - as directed Orally Unknown Immunizations Vaccine Route Administration Date Status Comme nts Flucelvax Quad multi dose vial Unknown 05/12/2019 Others FLUCELVAX Quad multi dose vial Unknown 04/19/2020 Administered Flucelvax Quad Prefilled syringe IM Intramuscular 07/23/2022 Administered Flucelvax Quad Prefilled syringe Unknown 10/14/2023 Refused Pneumococcal conjugate PCV 13 Unknown 10/14/2023 Refused Social History Tobacco Use: Social History Observation Description Date Details (start date - stop date) Current Smoker NA - NA Sex Assigned At : Social History Observation Description Sex Assigned At Female Tobacco Use/Smoking Question Answer Notes Are you a current smoker How often do you smoke cigarettes? every day How many cigarettes a day do you smoke? 06-08 Alcohol Screen (Audit-C) Question Answer Notes Did you have a drink containing alcohol in the p ast year? No Points 0 Interpretation Negative PRAPARE Question Answer Notes Date Completed/Updated: 01/08/2024 What is your current housing situation? I have h ousing Are you worried about losing your housing? [...] phone, visiting friends or family, going to nondenominational or club meetings) 3 to 5 times a week How stressed are you? Stress is when someone feels tense, nervous, anxious, or cant sleep at night because their mind is troubled Not at all In the past year have you sp ent more than 2 nights in a row in a senior care, fpc, mcc center, or juvenile correctional facility? No Do [...] reasons? 0 Total Count 0 Interpretation Negative Problems Problem Type SNOMED Code ICD Code Onset Dates Problem Status W/U Status Risk Notes Problem Information temporarily unavailable Vitamin D deficiency, unspecified (E55.9) Active confirmed Problem Information temporarily unavailable Tobacco abuse counseling (Z71.6) Active confirmed Problem Information temporarily unavailable Hyperlipidemia, unspecified (E78.5) Active confirmed Problem Information temporarily unavailable Essential (primary) hypertension (I10) Active confirmed Problem Information temporarily unavailable Hypothyroidism, unspecified (E03.9) Active confirmed Problem Information temporarily unavailable Nicotine dependence, cigarettes, uncomplicated (F17.210) Active confirmed Problem Information temporarily unavailable Chronic fatigue (R53.82) Active confirmed Problem Information temporarily unavailable Tobacco abuse (Z72.0) Active confirmed Problem Information temporarily unavailable Type 2 diabetes mellitus without complication, without long-term current use of insulin (E11.9) Active confirmed Problem Information temporarily unavailable Type 2 diabetes mellitus with hyperglycemia, without long-term current use of insulin (E11.65) 1 Active confirmed Problem Information temporarily unavailable Arthritis (M19.90) Active confirmed Problem Information temporarily unavailable Polycythemia (D75.1) 3 Active confirmed Problem Information temporarily unavailable Abnormal ultrasound of breast (R92.8) Active confirmed Problem Information temporarily unavailable COPD (chronic obstructive pulmonary disease) case management patient (J44.9) Active confirmed Problem Information temporarily unavailable Statin declined (Z53.20) 3 Active confirmed Problem Information temporarily unavailable S/P bilateral mastectomy (Z90.13) 3 Active confirmed Plan Of Treatment Pending Test Test Name Order Date Lipid Profile 09/08/2017 LIPID PANEL 04/06/2017 COMPREHENSIVE METABOLIC PANEL 04/06/2017 COMPREHENSIVE METABOLIC PANEL 09/08/2017 TPO AB ENDPOINT 03/09/2018 T4, FREE 03/09/2018 TSH 04/06/2017 T3, FREE 03/09/2018 ULTRA TSH 12/03/2016 LIPID PROFILE B 12/03/2016 COMPREHENSIVE METABOLIC PANEL 12/03/2016 Complete Blood Count 09/08/2017 ULTRA TSH 06/07/2018 ULTRA TSH 03/09/2018 Vitamin B12 and Folate 06/07/2023 Hemoglobin A1c 12/20/2020 TSH 04/13/2019 CBC With Differential/Platelet 9 CBC With Differential/Platelet 3 Albumin/Creatinine Ratio,Urine 2 Lipid Panel 04/13/2019 Comp. Metabolic Panel (14) 04/13/2019 Mammogram bilateral screening 12/11/2022 Insurance Providers Payer Name Payer Address Payer Phone Subscriber Number Group Number Insured Name Patient Relationship to Insured Coverage Start Date Coverage End Date [employer] [place] [address] [place] [id number] Self - patient is the insured Medications Administered Medication Instructions Date of Administration Dosage Notes Kenalog 40 06/07/2018 40 mg pt tolerated i njection well Rocephin 1gm 06/07/2018 1 g pt tolerated injection well Medical (General) History Medical History History ICD Code Hypothyroidism, unspecified E03.9 Hyperlipidemia, unspecified E78.5 Essential (primary) hypertension I10 Chronic obstructive pulmonary disease wi th acute lower respiratory infection J44.0 Vitamin D deficiency, unspecified E55.9 Body mass index (BMI) 31.0-31.9, adult Z 68.31 Chronic obstructive pulmonary disease wi th acute lower respiratory infection J44.0 Surgical History Surgery Date(Month/Year) Cataract Surgery Right Eye and Left Eye Colposcopy for Cervical Dysplasia times 3 Colonoscopy (Dr Watt) 01/2017 vaginal biopsy (Dermatology in [place]) Tumor removed from sphincter 12/05/20 MASECTOMY 03/20/2023
--- OUTSIDE RECORDS SUMMARY | 2025-04-19 10:45 | XMS_ITS | Encounter Summary ---
Author Organization [facility] Address [address] [place] [address] Care Team Providers Care Paralegal Legal Secretary Name Role Phone Armaan Stafford DO Unavailable [phone] Edgar Bishop MD Primary Care Provider [phone] Nelsy Casey APRN Primary Care Provider +- [phone] Jg Russo MD Unavailable [phone] Encounter Details Date Type Department Care Team (Late st Contact Info) Description 04/03/2021 Lab Requisition [facility] [address] [place] [address] Jg Russo MD [address] [facility] [address] [place] [address] Polyp of colon Social History Tobacco Use [...] EDT) Case Report Sug[facility] Pathology Consult Case: [id number] Authorizing Provider: Jg Russo MD Collected: 04/03/2021 1158 Ordering Location: [facility] Lab Received: 04/03/2021 1200 Pathologist: Margarette Carrasquillo MD Specimens: A) - Colon, 17:S2369 B) - Rectal, S2 C) - Rectal, [id number] 1 5:53 PM EDT [facility] Final Diagnosis A. OUTSIDE CASE [id number]; 02/06/2017: ASCENDING COLON POLYP, BIOPSY (SPECIMEN 1): - TUBULAR ADENOMA. - NEGATIVE FOR HIGH GRADE DYSPLASIA. TRANSVERSE COLON POLYP, BIOPSY (SPECIMEN 2): - HYPERPLASTIC POLYP. B. OUTSIDE CASE [id number]; 10/01/2020: TRANSVERSE COLON POLYP, BIOPSY (SPECIMEN 1): - HYPERPLASTIC POLYP. RECTAL POLYP, BIOPSY (SPECIMEN 2): - HYPERPLASTIC POLYP. C. OUTSIDE CASE [id number]; 12/12/2020: DISTAL ANAL RECTAL MASS, BIOPSY (SPECIMEN 1): - ATYPICAL EPITHELIOID PROLIFERATION WITH SIGNIFICANT CAUTERY ARTIFACT, SEE NOTE. DISTAL ANAL RECTAL MASS, BIOPSY (SPECIMEN 2): - HYPERPLASTIC SURFACE CHANGES AND CAUTERY ARTIFACT. 1 5:53 PM EDT [facility] at 1753 EDT Comment Block 1FS (case [id number]) shows irregular nests of epithelial-appea ring cells [...] along with a corresponding pathology report from [facility] are 2 slides labeled outside case: [id number] collected on 02/06/2017. B. [id number] Received along with a corresponding pathology report from [facility] are 2 slides labeled outside case: [id number] collected on 10/01/2020. C. [id number] Received along with a corresponding pathology report from [facility] are 3 slides labeled outside case: [id number] collected on 12/12/2020. 1 5:53 PM EDT [facility] Intradepartmental Consultation with Agreement Dr. Vladislav Nur and Dr. Margret Bradford have reviewed case [id number] and agree with the diagnosis of atypia. [...] ORDERABLES Fin al Result Performing Organization Address City/State/[facility] Co de Phone Number HEALTHCARE LAB [address] [place] [address] documented in this encounter Visit Diagnoses Diagnosis Polyp of colon Benign neoplasm of colon documented in this encounter Care Teams Paralegal Legal Secretary Relationship Specialty Start Date End Date Edgar Bishop MD [address] [place] [address] PCP - General 04/05/21 04/10/21 Nelsy Casey APRN [address] [place] [address] [address] KAYLEE Hernandez [phone] PCP - General 04/11/21 Armaan Stafford DO [address] [place] [address] Referring Physician 04/05/21 Jg Russo MD [address] [address] Surgeon Colon and Rectal Surgery 06/05/21 documented as of this encounter
--- OUTSIDE RECORDS SUMMARY | 2025-04-19 10:45 | XMS_ITS | Encounter Summary ---
Author Organization [facility] Address [address] [place] [address] Care Team Providers Care Marketing Analytics Analyst Name Role Phone Armaan Stafford DO Unavailable [phone] Edgar Bishop MD Primary Care Provider [phone] Nelsy Casey APRN Primary Care Provider + [phone] Jg Russo MD Unavailable [phone] Encounter Details Date Type Department Care Team (Late st Contact Info) Description 03/29/2021 Lab Requisition [facility] Lab [address] [place] [address] Jg Russo MD [address] [facility] [address] [place] [address] Other specified diseases of anus and rectum [...] EDT) Case Report Sug[facility] Pathology Consult Case: [id number] Authorizing Provider: Jg Russo MD Collected: 03/29/2021 1110 Ordering Location: [facility] Lab Received: 03/29/2021 1111 Pathologist: Vladislav Nur MD Specimen: Perineal Biopsy, [id number] 04/03/2021 4:43 PM EDT [facility] Final Diagnosis PERIANAL MASS, BIOPSY (OUTSIDE: [id number], COLLECTION: 01/18/2021): - INVASIVE SQUAMOUS CELL CARCINOMA, WITH BASALOID FEATURES 04/03/2021 4:43 PM EDT [facility]ALTH[facility]ARE [facility] at 1643 EDT Clinical Information Perianal mass 04/03/2021 4:43 PM EDT [facility] Microscopic Description The submitted P16 immunohistochemical stain is interpreted as positive (diffuse, block-like). Controls are adequate. 04/03/2021 4:43 PM EDT [facility] Gross Description A. [id number] Received along with a corresponding pathology report from [facility] are 2 slide(s) labeled outside case: [id number] collected on 01/18/2021. 04/03/2021 4:43 PM EDT [facility] Tissue Structure of perineal body / Unknown 03/29/2021 11:10 AM EDT 03/29/2021 11:11 AM EDT us Jg Russo MD LAB PATHOLOGY ORDERABLES Fin al Result Performing Organization Address City/State/[facility] Co de Phone Number HEALTHCARE LAB [address] [place] [address] documented in this encounter Visit Diagnoses Diagnosis Other specified diseases of anus and rectum documented in this encounter Care Teams Marketing Analytics Analyst Relationship Specialty Start Date End Date Edgar Bishop MD [address] [place] [address] PCP - General 04/05/21 04/10/21 Nelsy Casey APRN [address] [place] [address] [address] KAYLEE Hernandez [id number] PCP - General 04/11/21 Armaan Stafford DO [address] [place] [address] Referring Physician 04/05/21 Jg Russo MD [address] [phone] Surgeon Colon and Rectal Surgery 06/05/21 documented as of this encounter
[2025-04-19 11:02] LABS: Alanine Aminotransferase 14 U/L (12-78); Albumin Level 4.0 g/dl (3.5-5.0); Alkaline Phosphatase 152 U/L (38-126); Anion Gap 12.7 mEq/L (5-15); Aspartate Amino Transferase 16 U/L (14-36); Bilirubin,Direct 0.3 mg/dl (0.0-0.4); Bilirubin,Indirect 0.8 mg/dL (0.0-0.9); Bilirubin,Total 1.1 mg/dl (0.2-1.3); Bilirubin,Unconjugated 0.8 mg/dL (0.0-1.1); Blood Urea Nitrogen 12 mg/dl (7-17); Calcium 9.3 mg/dl (8.4-10.2); Carbon Dioxide 30 mmol/L (22.0-30.0); Chloride 97 mmol/L (98-107); Cholesterol 200 mg/dl (140-200); Creatinine,Serum 0.70 mg/dl (0.52-1.04); Estimated Glomerular Filt Rate 85 ml/min (>60); GFR (African American) 103 ML/MIN (>60); Glucose 276 mg/dl (74-100); HDL Cholesterol 39 mg/dl (40-60); Magnesium 1.9 mg/dl (1.6-2.3); Potassium 3.7 mmoL/L (3.5-5.1); Sodium 136 mmol/L (136-145); Total Protein,Serum 6.4 g/dl (6.3-8.2); Triglycerides 153 mg/dl (30-150)
[2025-04-19 11:15] LABS: Free T4 (Free Thyroxine) 1.67 ng/dl (0.78-2.19)
[2025-04-19 11:31] LABS: Thyroid Stimulating Hormone 5.12 uIU/mL (0.465-4.68)
== END 2025-04-19 23:59 | disposition home or self-care (01) ==
LOC: LAB 10:08
PROVIDERS: PCP Nurse Practitioner Family; Visit Provider Internal Medicine
DX: E78.49 Other hyperlipidemia (principal); I10 Essential (primary) hypertension
CPT/HCPCS: 36415; 80048; 80061; 80076; 82088; 82384; 82533; 83735; 83835; 84244; 84439; 84443; 85025

== ENCOUNTER 2025-04-20 13:44 | Outpatient (CLI) | payer MEDICAID, SELFPAY ==
--- OUTSIDE RECORDS SUMMARY | 2023-11-13 04:45 | XMS_ITS ---
Author Organization [facility] Address [address] [place] [address] Care Team Providers Care Varnish Remover Name Role Phone Samantha Arevalo Primary Care Provider REASON FOR VISIT follow up NS Social History Sex Assigned At : Social History Observation Description Sex Assigned At Female Encounters Encounter Location Date Provider Diagnosis [facility] [address] [place] [phone] 11/13/2023 Samantha Arevalo Plan Of Treatment No Information Progress Notes * Anjelica GALVEZ EDOB:1965 ( 59 yo F)Acc No.[id number]:11/13/2023 Progress Notes Patient: Anjelica KIRKPATRICK Provider: Mercy Arevalo APRN :1965 A ge:58 Y S ex:Female Date:11/13/2023 Address:[address] [place] [id number] Subjective: * Chief Complaints: * 1 . follow up NS. * Medical History: Objective: * Vitals: Assessment: Plan: * Treatment: * Billing Information: * Visit Code: * Procedure Codes: * Electronic signature of Maria Elena Arevalo on 04/20/2025 at 01:46 PM EDT Sign off status: Pending * Provider: Mercy Arevalo APRN Date: 0 11/13/2023 Generated for Printi ng/Faxing/eTransmitting on: 1 01:46 PM EDT
--- OUTSIDE RECORDS SUMMARY | 2024-01-08 05:15 | XMS_ITS ---
Author Organization [facility] Address [address] [place] [address] [address] [place] [address] Care Team Providers Care Head Loader Name Role Phone Irina Samantha Primary Care Provider Allergies No Known Allergies REASON FOR VISIT PAPS SMEAR NS Medications Medication SIG (Take, Route, Frequency, Duration) Notes Start Date End Date Status Synthroid 200 MCG 1 tablet on an empty stomach in the morning Orally Once a day; Duration: 90 days Unknown Levothyroxine Sodium 25 MCG 1 tablet in the morning on an empty stomach Orally Once a day; Duration: 90 days Active glipiZIDE 5 MG 1 tablet 30 minutes before breakfast Orally Once a day; Duration: 90 days Active ProAir HFA 108 (90 Base) MCG/ACT 2 puffs as needed Inhalation every 4 hrs; Duration: 90 days 12/28/2020 Unknown Multivitamin Plus Iron Adult - as directed Orally Unknown DULoxetine HCl 30 MG 1 capsule Orally Tw ice a day; Duration: 90 days 03/08/2018 Unknown metFORMIN HCl 1000 MG 1 tablet Orally tw ice a day with meals; Duration: 90 days Active Metoprolol Succinate ER 50 MG 1 tablet Orally Once a day; Duration: 90 days 04/13/2019 Unknown Social History Tobacco Use: Social History Observation Description Date Details (start date - stop date) Current Smoker NA - NA Sex Assigned At : Social History Observation Description Sex Assigned At Female Tobacco Use/Smoking Question Answer Notes Are you a current smoker How often do you smoke cigarettes? every day How many cigarettes a day do you smoke? -20 Alcohol Screen (Audit-C) Question Answer Notes Did you have a drink containing alcohol in the p ast year? No Points 0 Interpretation Negative PRAPARE Question Answer Notes Date Completed/Updated: 01/08/2024 What is your current housing situation? I have h willyg Are you worried about losing your housing? No What is the highest level of school that you have finished? High school diploma or GED What is your current work situation? I choose no t to answer this question In the past year, have you o r any family members you live with been unable to get any of the following when it was really needed? Check all that apply I do not have problems meeting my needs Has lack of transportation k ept you from medical appointments, meetings, work or from getting things needed for daily living? No How often do you see or talk to people that you care about and feel close to? (For example: talking to friends on the phone, visiting friends or family, going to denominational or club meetings) 3 to 5 times a week How stressed are you? Stress is when someone feels tense, nervous, anxious, or cant sleep at night because their mind is troubled Not at all In the past year have you sp ent more than 2 nights in a row in a custodial, usp, assisted center, or juvenile correctional facility? No Do you feel physically and e motionally safe where you currently live? Yes In the past year, have you b een afraid of your partner or ex-partner? No PRAPARE Score: 2 Are you a refugee? No What country are you from? [place] OPIOID Risk Tool (2018 Edition) Question Answer Notes Family Hx Alcohol? No Family Hx Illegal Drugs? No Family Hx Rx Drugs? No Personal Hx Alcohol? No Personal Hx Illegal Drugs? No Personal Hx Rx Drugs? No Age between 16-45 years? No History of Preadolescent Sexual Abuse? No ADD, OCD, Bipolar, Schizophrenia? No Depression? No TOTAL SCORE 0 Risk Level for Opioid Use low SBIRT (2018 Edition) Question Answer Notes Patient refused/declined SBIRT screening at this time? No 1. How often do you have a drink containing alco hol? Never 3. How often do you have five or more drinks on one occasion? Never SCORE 0 Interpretation Negative How many times in the past y ear have you used an illegal drug or used a prescription medication for non-medical reasons? 0 Total Count 0 Interpretation Negative Encounters Encounter Location Date Provider Diagnosis [facility] [address] [place] [phone] 01/08/2024 Samantha Arevalo Encounter for screening for malignant neoplasm of cervix Z12.4 Assessments Encounter Date Diagnosis (ICD Code) Assessment Notes Treatment Notes Treatment Clinical Notes Section Notes 01/08/2024 Encounter for screening for malignant neoplasm of cervix (ICD-10 - Z12.4) Importance of cancer screenings for early detection explained to patient. 01/08/2024 Other Patient informed that [facility] has oncall providers available 09/02 by dialing regular clinic number. Also informed patient to sign up for the patient portal and explained process and advantages of using the portal including communication with provider, refill requests, review labs, etc. Pt also reminded to bring all medications to each visit. Also reviewed current [facility] and state guidelines and recommendations for preventing spread of COVID19. V/U Plan Of Treatment Treatment Notes Assessment Notes Encounter for screening for malignant neoplasm of cervix Importance of cancer screenings for edin y detection explained to patient. Other Patient informed that [facility] has oncall providers available 09/02 by dialing regular clinic number. Also informed patient to sign up for the patient portal and explained process and advantages of using the portal including communication with provider, refill requests, review labs, etc. Pt also reminded to bring all medications to each visit. Also reviewed current [facility] and state guidelines and recommendations for preventing spread of COVID19. 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 PAPS SMEAR NS. * HPI: G YN History: Abnormal vaginal bleeding: n one. Breast complaints: n one. Calcium intake: a dequate. Contraception: _ . History of an abnormal PAP: n one. History of sexually transmitted diseases (STDs): d enies.? Last menstrual period: _ . Last Pap: _ . Menarche: _ . Menses: r egular. Urinary problems: n one. Vaginal discharge: n one. Sexual partner: s lucie. * Medical History: H ypothyroidism, unspecified, Hyperlipidemia, unspecified, Essential (primary) hypertension, Chronic obstructive pulmonary disease with acute lower respiratory infection, Vitamin D deficiency, unspecified, Body mass index (BMI) 31.0-31.9, adult, Chronic obstructive pulmonary disease with acute lower respiratory infection. 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 L AST MAMMOGRAM 0 01/04/2015 [facility], pt declines mammo at this time. L ast pap smear date S eptemb2022 [facility]. P eriods : N /A. S exual activity n ot currently sexually active. * OB History: T otal living children 3 . T otal pregnancies 4 . * Surgical History: C ataract Surgery Right Eye and Left Eye , Colposcopy for Cervical Dysplasia , times 3 , Colonoscopy (Dr Watt) 01/2017, vaginal biopsy ([place]ology in [place]) 08/2018, Tumor removed from sphincter 12/05/20, MASECTOMY 03/20/2023. * Hospitalization/Major Diagno stic Procedure: D enies Past Hospitalization. * Family History: F ather: alive, diagnosed with Other malignant neoplasm of unspecified site. M other: . F riend(s): diagnosed with Diabetes mellitus without mention of complication, type II or unspecified type, not stated as uncontrolled. P aternal Grand Mother: diagnosed with Unspecified heart disease. 1 sister(s) . 1 son(s) , 2 daughter(s) . . Father has lung cancer. * Social History: T obacco Use: T obacco Use/Smoking A re you a c urrent smoker H ow often do you smoke cigarettes? e very day H ow many cigarettes a day do you smoke? 1 1-20 S ocial Determinants: P RAPAMITCHELL D ate Completed/Updated: 0 01/08/2024 W hat is your current housing situation? I have housing A re you worried about losing your housing??No W hat is the highest level of school that you have finished? H igh school diploma or GED W hat is your current work situation? I choose not to answer this question I n the past year, have you or any family members you live with been unable to get any of the following when it was really needed? Check all that apply I do not have problems meeting my needs H as lack of transportation kept you from medical appointments, meetings, work or from getting things needed for daily living? N o H ow often do you see or talk to people that you care about and feel close to? (For example: talking to friends on the phone, visiting friends or family, going to denominational or club meetings) 3 to 5 times a week H ow stressed are you? Stress is when someone feels tense, nervous, anxious, or cant sleep at night because their mind is troubled N ot at all I n the past year have you spent more than 2 nights in a row in a custodial, usp, assisted center, or juvenile correctional facility? N o D o you feel physically and emotionally safe where you currently live? Y es I n the past year, have you been afraid of your partner or ex-partner? N o P RAPARE Score: 2 A re you a refugee? N o W hat country are you from[place] D rugs/Alcohol: A lcohol Screen (Audit-C) D id you have a drink containing alcohol in the past year? N o P oints 0 I nterpretation N egative OPIOID Risk Tool (2018 Edition) F amily Hx Alcohol? N o F amily Hx Illegal Drugs? N o F amily Hx Rx Drugs? N o P ersonal Hx Alcohol? N o P ersonal Hx Illegal Drugs? N o P ersonal Hx Rx Drugs? N o A ge between 16-45 years? N o H istory of Preadolescent Sexual Abuse? N o A DD, OCD, Bipolar, Schizophrenia? N o D epression? N o T OTAL SCORE 0 R isk Level for Opioid Use l ow SBIRT (2018 Edition) P atient refused/declined SBIRT screening at this time? N o 1 . How often do you have a drink containing alcohol? N ever 3 . How often do you have five or more drinks on one occasion? N ever S CORE 0 I nterpretation N egative H ow many times in the past year have you used an illegal drug or used a prescription medication for non-medical reasons? 0 T otal Count 0 I nterpretation N egative M iscellaneous: C affeine: yes, more than 4 cups per day. Exercise: none. Home smoke detector use: smoke detectors. Housing: owns a home. Marital status d ivorced. 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 Pets: cats 22. * Medications: T aking glipiZIDE 5 MG Tablet 1 tablet 30 minutes before breakfast Orally Once a day , Taking Levothyroxine Sodium 25 MCG Tablet 1 tablet in the morning on an empty stomach Orally Once a day , Taking metFORMIN HCl 1000 MG Tablet 1 tablet Orally twice a day with meals , Unknown DULoxetine HCl 30 MG Capsule Delayed Release Particles 1 capsule Orally Twice a day , Unknown Metoprolol Succinate ER 50 MG Tablet Extended Release 24 Hour 1 tablet Orally Once a day , Unknown Multivitamin Plus Iron Adult(Multiple Vitamins-Iron) - Tablet as directed Orally , Unknown ProAir HFA 108 (90 Base) MCG/ACT Aerosol Solution 2 puffs as needed Inhalation every 4 hrs , Unknown Synthroid(Levothyroxine Sodium) 200 MCG Tablet 1 tablet on an empty stomach in the morning Orally Once a day * Allergies: N .K.D.A. Objective: * Vitals: * Examination: G ynecological: BREASTS: n on-tender, no masses appreciated, no axillary adenopathy. EXTERNAL GENITALIA: n o erythema, no lesions. VAGINA: h ealthy pink mucosa without any lesions. CERVIX: d ownward, normal appearing, no cervical movement tenderness. UTERUS: n ormal size, shape and consistency. ADNEXA: n o masses or tenderness bilaterally. ABDOMEN: n ormoactive bowel sounds, soft, non-tender, non-distended. Assessment: * Assessment: 1. E ncounter for screening for malignant neoplasm of cervix - Z12.4 (Primary) Plan: * Treatment: 2. O thers Notes: Patient informed that [facility] has oncall providers available 09/02 by dialing regular clinic number. Also informed patient to sign up for the patient portal and explained process and advantages of using the portal including communication with provider, refill requests, review labs, etc. Pt also reminded to bring all medications to each visit. Also reviewed current CDC and state guidelines and recommendations for preventing spread of COVID19. V/U * Procedures: K OH Prep: Indication R ule out fungal etiology, Rule out bacterial vaginosis, Rule out trichomonas. * Preventive Medicine: WOMEN'S YOUR PREVENTIVE WELLNESS PLAN: B WI, Height, and Weight: My BMI, height, and weight were taken on: 0 01/08/2024 B lood Pressure: My blood pressure was last taken on:?01/08/2024 D epression Screening: Screening for depression was last done on: 0 01/08/2024 A lcohol Misuse Screening: Screening for alcohol misuse was last done on: 0 01/08/2024 oral: A re you having dental pain or issues? Are you having dental pain or issues??No D o you have a dental provider? Do you have a dental provider? Y es Counseling: S MOKING: Patient counselled on the dangers of tobacco use and urged to quit. 0 01/08/2024 CALL [phone] Relapse prevention: D iscussed the importance of a supportive environment and helped identify them. C are goal follow-up Counseling for Dietary Consulatation Provided Y es Avoid sugary drinks and snacks. Counseling for BMI Management Provided?Yes H igh Risk Sexual Behavior N o high risk sexual behavior. B WI Management Exercise Counseling Provided- Y es Nutrition/Dietary Counseling provided?Yes BMI management provided Y es B P Management: DIETARY RECOMMENDATIONS: D iet education WEIGHT REDUCTION RECOMMENDATION: W eight control education PHYSICAL ACTIVITY RECOMMENDATION: E xercise education LIFESTYLE RECOMMENDATION: H ypertension education C ommunication to patient: Counseled the Patient on tobacco use; cessation provided 0 01/08/2024 Counseled the Patient on smoking cessation; education provided 0 01/08/2024 Counseled the Patient on smoking effects; education provided 0 01/08/2024 Referral given to patient to stop-smoking clinic 0 01/08/2024 Smoking cessation assistance provided?01/08/2024 Referral to smoking cessation advisor was given to Patient 0 01/08/2024 Refused Tests: B lood test D eclines HIV and HCV screenings. V accine D eclines, reviewed VIS for influenza explaining the importance of regular flu vaccinations in helping prevent personal illness and spread of disease. Explained that this is an inactivated virus. Pt Declines., Declines, reviewed VIS for pneumococcal vaccine, explaining the importance of vaccination in helping prevent personal illness. Explained that this is an inactivated virus. Pt Declines.. D iabetic Eye Exam D gen, will address each visit.? Screenings: F ALL RISK SCREENING Fall Risk Assessment: N o falls in the past year A DVANCED CARE PLANNING: Patient was offered the opportunity to discuss advance care planning: Y es Advanced care planning: w as discussed today An advanced care directive: h as been discussed C ERVICAL CANCER SCREENING: Date of most recent screenin 01/08/2024 D EPRESSION SCREENING: Date of most recent screenin 01/08/2024 T OBACCO USE SCREENING: The patient smoked: c igarettes Chewing tobacco: h as not been used Smoking tobacco was last used: t paul Secondhand smoke exposure Y es Use of Vape Products N o * Billing Information: * Visit Code: * Procedure Codes: * Electronic signature of Maria Elena Arevalo on 04/20/2025 at 01:46 PM EDT Sign off status: Pending * Provider: Mercy Arevalo APRN Date: 0 01/08/2024 Generated for Saturnino lorenzo/Je/Helga on: 1 01:46 PM EDT History and Physical Notes * HPI (History of Present Illness) Category Sub-Category Detail Notes 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 History of sexually transmitted diseases (STDs): denies History of an abnormal PAP: none Contraception: Menses: regular Urinary problems: none Menarche: Last menstrual period: Vaginal discharge: none Abnormal vaginal bleeding: none Last Pap: Calcium intake: adequate Breast complaints: none Sexual partner: same Examination Category Sub-Category Detail Notes Category Not es Gynecological CERVIX: downward, normal appearing, no cervical movement tenderness VAGINA: healthy pink mucosa without any lesions EXTERNAL GENITALIA: no erythema, no lesi ons UTERUS: normal size, shape a nd consistency ADNEXA: no masses or tendern ess bilaterally BREASTS: non-tender, no naomi s appreciated, no axillary adenopathy ABDOMEN: normoactive bowel so unds, soft, non-tender, non-distended
--- OUTSIDE RECORDS SUMMARY | 2025-04-20 13:46 | XMS_ITS | Encounter Summary ---
Author Organization [facility] Address [address] [place] [address] Care Team Providers Care Bulk Sealer Operator Name Role Phone Irina Samantha Ferrer TUNNEL ELASTIC OPERATOR ZIGZAG Primary Care Provider [phone] Maria Teresa Bai Unavailable Unavailable Karen Sparks MD Unavailable [phone] Maria Ines Douglas TUNNEL ELASTIC OPERATOR ZIGZAG Primary Care Provider [phone] Encounter Details Date Type Department Care Team (Late st Contact Info) Description 01/28/2023 Telephone [facility] [address] 3[address] [place] [phone] Fina Fajardo, RN [address] [place] [address] Social History Tobacco Use Types Packs/Day Years [...] documented as of this encounter Care Teams Bulk Sealer Operator Relationship Specialty Start Date End Date Samantha Arevalo NP [address] [place] [address] PCP - General Family Medicine 01/16/23 06/12/24 Maria Ines Douglas NP [address] [place] [address] PCP - General Family Medicine 06/13/24 Maria Teresa Bai [address] [place] [address] Nurse Navigator 04/03/23 Karen Sparks MD [address] [facility] [address] [place] [address] Consulting Physician Oncology 04/23/23 documented as of this encounter
--- OUTSIDE RECORDS SUMMARY | 2025-04-20 13:46 | XMS_ITS | Clinical Summary ---
Author Organization [facility] Address [address] [place] [address] Care Team Providers Care Global Transportation Manager Name Role Phone Maria Teresa Bai Unavailable Unavailable Karen Sparks MD Unavailable [phone] Maria Ines Douglas NP Primary Care Provider [phone] Allergies Active Allergy Reactions Criticality Noted Date Comments Enoxaparin 01/06/2023 Medications levothyroxine (Synthroid, Levoxyl) 200 MCG tablet Take 1 tablet (200 mcg) by mouth before breakfast. Take day of surgery Active ibuprofen 800 MG tablet Take 1 tablet (800 mg) by mouth every 6 (six) hours if needed for mild pain (1-4). Hold day of surgery Active multivitamin-ir hw-vekkefll-ekh ic acid (Centrum) chewable tablet Chew 1 [...] Hold day of surgery Active HYDROcodone-lauro taminophen ([employer]) 5-325 MG tablet Take 1 tablet by mouth every 6 (six) hours if needed for severe pain (8-10). 30 tablet 3 Active Additional Information Patient not taking.Reported on 06/13/2024 amoxicillin-cla vulanate (Augmentin) 875-125 MG tablet Take 1 tablet by mouth in the morning and at bedtime. 3 Active ergocalciferol (Vitamin D-2) 1.25 MG (02409 UT) capsule Take 1 capsule (1.25 mg) by mouth 1 (one) time per week. Active Active Problems Problem Noted Date Diagnosed Date History of anal cancer 05/19/2023 Abscess 04/08/2023 Malignant neoplasm of overla pping sites of right breast in female, estrogen receptor positive 03/16/2023 Cancer Staging:Pathologic stage from 03/20/2023:Stage IA(pT1a, pN0(sn), cM0, G2, ER+, MO+, HER2-) - Signed by Karen Sparks MD on 05/19/2023 Clinical stage from 05/11/2024:Stage IA(cT1b, cN0, cM0, G2, ER+, MO+, HER2-) - Signed by Rodrigo iDana MD on 05/11/2024 Assessment & Plan (06/13/2024 [...] often do you attend chur ch or cheondoism services? More than 4 times per year 04/09/2023 Do you belong to any clubs o r organizations such as yarsani groups, unions, fraternal or athletic groups, or [...] Recorded Patient Health Questionnaire-2 Score 0 04/09/2023 [facility] - Occupational Stress Questionnaire Answer Date [...] RN 04/13/23 8:25 AM 04/08/2023 04/08/2023 Insurance [phone] (Work) [address] [address] [facility] [place] [address] Advance Directives * Full Code (Latest Code [...] 10:05 AM 01/16/2023 1:53 PM Care Teams Global Transportation Manager Relationship Specialty Start Date End Date Maria Ines Douglas NP [address] [facility] [place] [address] PCP - General Family Medicine 06/13/24 Maria Teresa Bai [address] [place] [address] Nurse Navigator 04/03/23 Karen Sparks MD [address] [place] [address] Consulting Physician Oncology 04/23/23
--- OUTSIDE RECORDS SUMMARY | 2025-04-20 13:46 | XMS_ITS | Patient Health Record ---
Author Organization [facility] Address [address] [place] [address] [address] [place] [address] Care Team Providers Care Inspector Machine Parts Name Role Phone Samantha Arevalo Primary Care Provider Allergies No Known Allergies Reason For Referral [...] Vaccine Route Administration Date Status Comme nts Pneumococcal conjugate PCV 13 Unknown 10/14/2023 Refused Flucelvax Quad Prefilled syringe IM Intramuscular 07/23/2022 Administered Flucelvax Quad Prefilled syringe Unknown 10/14/2023 Refused FLUCELVAX Quad multi dose vial Unknown 04/19/2020 Administered Flucelvax Quad multi dose vial Unknown 05/12/2019 Others Social History Tobacco Use: Social History Observation [...] phone, visiting friends or family, going to oriental orthodox or club meetings) 3 to 5 times a week How stressed are you? Stress is when someone feels tense, nervous, anxious, or cant sleep at night because their mind is troubled Not at all In the past year have you sp ent more than 2 nights in a row in a long term, longterm, usp center, or juvenile correctional facility? No Do [...] Problem Status W/U Status Risk Notes Problem Vitamin D deficiency (91008206) Vitamin D deficiency, unspecified (E55.9) Active confirmed Problem Counseling about tobacco use (748675325) Tobacco abuse counseling (Z71.6) Active confirmed Problem Hyperlipidemia (96462133) Hyperlipidemia, unspecified (E78.5) Active confirmed Problem Essential hypertension (65657259) Essential (primary) hypertension (I10) Active confirmed Problem Hypothyroidism (25413850) Hypothyroidism, unspecified (E03.9) Active confirmed Problem Tobacco user (008129845) Nicotine dependence, cigarettes, uncomplicated (F17.210) Active confirmed Problem Chronic fatigue syndrome (91198272) Chronic fatigue (R53.82) Active confirmed Problem Tobacco abuse (0691803841) Tobacco abuse (Z72.0) Active confirmed Problem Type II diabetes mellitus without complication (488547835) Type 2 diabetes mellitus without complication, without long-term current use of insulin (E11.9) Active confirmed Problem Hyperglycemia due to type 2 diabetes mellitus (051430350535155) Type 2 diabetes mellitus with hyperglycemia, without long-term current use of insulin (E11.65) 12/21/19 21 Active confirmed Problem Arthritis (2718279) Arthritis (M19.90) Active confirmed Problem Polycythemia (295792609) Polycythemia (D75.1) 11/02/19 23 Active confirmed Problem Ultrasonography of breast abnormal (24470884146348868 ) Abnormal ultrasound of breast (R92.8) Active confirmed Problem Chronic obstructive pulmonary disease (70509787) COPD (chronic obstructive pulmonary disease) case management patient (J44.9) Active confirmed Problem Statin declined (507253547) Statin declined (Z53.20) 07/25/19 23 Active confirmed Problem History of bilateral mastectomy (situation) (890584291) S/P bilateral mastectomy (Z90.13) 06/04/20 23 Active confirmed Plan Of Treatment Pending Test Test Name Order Date Lipid Profile 09/08/2017 LIPID PANEL 04/06/2017 COMPREHENSIVE METABOLIC PANEL 09/08/2017 COMPREHENSIVE METABOLIC PANEL 04/06/2017 TPO AB ENDPOINT 03/09/2018 T4, FREE 03/09/2018 TSH 04/06/2017 T3, FREE 03/09/2018 ULTRA TSH 12/03/2016 LIPID PROFILE B 12/03/2016 COMPREHENSIVE METABOLIC PANEL 12/03/2016 Complete Blood Count 09/08/2017 ULTRA TSH 03/09/2018 ULTRA TSH 06/07/2018 Vitamin B12 and Folate 06/07/2023 Hemoglobin A1c 12/20/2020 TSH 04/13/2019 CBC With Differential/Platelet 9 CBC With Differential/Platelet 3 Albumin/Creatinine Ratio,Urine 2 Lipid Panel 04/13/2019 Comp. Metabolic Panel (14) 04/13/2019 Mammogram bilateral screening 12/11/2022 Insurance Providers Payer Name Payer Address Payer Phone Subscriber Number Group Number Insured Name Patient Relationship to Insured Coverage Start Date Coverage End Date [employer] [place] [address] [place] [address] [id number] Self - patient is the insured Medications [...] (Dr Watt) 01/2017 vaginal biopsy (Dermatology in [place]) Tumor removed from sphincter 12/05/20 MASECTOMY 03/20/2023
--- OUTSIDE RECORDS SUMMARY | 2025-04-20 13:46 | XMS_ITS | Encounter Summary ---
Author Organization [facility] Address [address] [place] [address] Care Team Providers Care Lens Polisher Hand Name Role Phone Armaan Stafford DO Unavailable [phone] Edgar Bishop MD Primary Care Provider [phone] Nlesy Casey APRN Primary Care Provider + [phone] Jg Russo MD Unavailable [phone] Encounter Details Date Type Department Care Team (Late st Contact Info) Description 03/29/2021 Lab Requisition [facility] [address] [place] [address] Jg Russo MD [address] [facility] [address] [place] [address] Other specified diseases of anus and rectum [...] EDT) Case Report Sug[facility] Pathology Consult Case: [id number] Authorizing Provider: Jg Russo MD Collected: 03/29/2021 1110 Ordering Location: [facility] Lab Received: 03/29/2021 1111 Pathologist: Vladislav Nur MD Specimen: Perineal Biopsy, [id number] 04/03/2021 4:43 PM EDT [facility] Final Diagnosis PERIANAL MASS, BIOPSY (OUTSIDE: [id number], COLLECTION: 01/18/2021): - INVASIVE SQUAMOUS CELL CARCINOMA, WITH BASALOID FEATURES 04/03/2021 4:43 PM EDT [facility]ARE [facility] at 1643 EDT Clinical Information Perianal mass 04/03/2021 4:43 PM EDT [facility] Microscopic Description The submitted P16 immunohistochemical stain is interpreted as positive (diffuse, block-like). Controls are adequate. 04/03/2021 4:43 PM EDT [facility] Gross Description A. [id number] Received along with a corresponding pathology report from [facility] are 2 slide(s) labeled outside case: [id number] collected on 01/18/2021. 04/03/2021 4:43 PM EDT [facility] Tissue Structure of perineal body / Unknown 03/29/2021 11:10 AM EDT 03/29/2021 11:11 AM EDT us Jg Russo MD LAB PATHOLOGY ORDERABLES Fin al Result Performing Organization Address City/State/[facility] Co de Phone Number [facility]ALTH[facility]ARE LAB [address] [place] [address] documented in this encounter Visit Diagnoses Diagnosis Other specified diseases of anus and rectum documented in this encounter Care Teams Lens Polisher Hand Relationship Specialty Start Date End Date Edgar Bishop MD [address] [place] [address] PCP - General 04/05/21 04/10/21 Nelsy Casey APRN [address] [place] [address] [address] KAYLEE Hernandez [id number] PCP - General 04/11/21 Armaan Stafford DO [address] [place] [address] Referring Physician 04/05/21 Jg Russo MD [address] [phone] Surgeon Colon and Rectal Surgery 06/05/21 documented as of this encounter
--- OUTSIDE RECORDS SUMMARY | 2025-04-20 13:46 | XMS_ITS | Encounter Summary ---
Author Organization [facility] Address [address] [place] [address] Care Team Providers Care Package Handler Name Role Phone Armaan Stafford DO Unavailable [phone] Edgar Bishop MD Primary Care Provider [phone] Nelsy Casey APRN Primary Care Provider + [phone] Jg Russo MD Unavailable [phone] Encounter Details Date Type Department Care Team (Late st Contact Info) Description 04/03/2021 Lab Requisition [facility] [address] [place] [address] Jg Russo MD [address] [facility] [address] [place] [address] Polyp of colon Social History Tobacco Use [...] EDT) Case Report Sugical Pathology Consult Case: [id number] Authorizing Provider: Jg Russo MD Collected: 04/03/2021 1158 Ordering Location: [facility] Lab Received: 04/03/2021 1200 Pathologist: Margarette Carrasquillo MD Specimens: A) - Colon, 17:S2369 B) - Rectal, S2 C) - Rectal, [id number] 1 5:53 PM EDT [facility] Final Diagnosis A. OUTSIDE CASE [id number]; 02/06/2017: ASCENDING COLON POLYP, BIOPSY (SPECIMEN 1): - TUBULAR ADENOMA. - NEGATIVE FOR HIGH GRADE DYSPLASIA. TRANSVERSE COLON POLYP, BIOPSY (SPECIMEN 2): - HYPERPLASTIC POLYP. B. OUTSIDE CASE [id number]; 10/01/2020: TRANSVERSE COLON POLYP, BIOPSY (SPECIMEN 1): - HYPERPLASTIC POLYP. RECTAL POLYP, BIOPSY (SPECIMEN 2): - HYPERPLASTIC POLYP. C. OUTSIDE CASE [id number]; 12/12/2020: DISTAL ANAL RECTAL MASS, BIOPSY (SPECIMEN 1): - ATYPICAL EPITHELIOID PROLIFERATION WITH SIGNIFICANT CAUTERY ARTIFACT, SEE NOTE. DISTAL ANAL RECTAL MASS, BIOPSY (SPECIMEN 2): - HYPERPLASTIC SURFACE CHANGES AND CAUTERY ARTIFACT. 1 5:53 PM EDT [facility] at 1753 EDT Comment Block 1FS (case [id number]) shows irregular nests of epithelial-appea ring cells [...] along with a corresponding pathology report from [facility] are 2 slides labeled outside case: [id number] collected on 02/06/2017. B. [id number] Received along with a corresponding pathology report from [facility] are 2 slides labeled outside case: [id number] collected on 10/01/2020. C. [id number] Received along with a corresponding pathology report from [facility] are 3 slides labeled outside case: [id number] collected on 12/12/2020. 1 5:53 PM EDT [facility] Intradepartmental Consultation with Agreement Dr. Vladislav Nur and Dr. Margret Bradford have reviewed case [id number] and agree with the diagnosis of atypia. [...] ORDERABLES Fin al Result Performing Organization Address City/State/[facility] Co de Phone Number HEALTHCARE LAB [address] [place] [address] documented in this encounter Visit Diagnoses Diagnosis Polyp of colon Benign neoplasm of colon documented in this encounter Care Teams Package Handler Relationship Specialty Start Date End Date Edgar Bishop MD [address] [place] [address] PCP - General 04/05/21 04/10/21 Nelsy Casey APRN [address] [place] [address] [address] KAYLEE Hernandez [id number] PCP - General 04/11/21 Armaan Stafford DO [address] [place] [address] Referring Physician 04/05/21 Jg Russo MD [address] [place] [address] [address] Surgeon Colon and Rectal Surgery 06/05/21 documented as of this encounter
--- OUTSIDE RECORDS SUMMARY | 2025-04-20 13:46 | XMS_ITS ---
Author Organization [facility] Address [address] [place] [address] Care Team Providers Care Body Shop Manager Name Role Phone Maria Teresa Bai Unavailable Unavailable Karen Sparks MD Unavailable [phone] MariaI nes Douglas NP Primary Care Provider [phone] Active Problems Problem Noted Date Diagnosed Date History of anal cancer 05/19/2023 Abscess 04/08/2023 Malignant neoplasm of overla pping sites of right breast in female, estrogen receptor positive 03/16/2023 Cancer Staging:Pathologic stage from 03/20/2023:Stage IA(pT1a, pN0(sn), cM0, G2, ER+, RI+, HER2-) - Signed by Karen Sparks MD on 05/19/2023 Clinical stage from 05/11/2024:Stage IA(cT1b, cN0, cM0, G2, ER+, RI+, HER2-) - Signed by Rodrigo Diana MD [...]
--- OUTSIDE RECORDS SUMMARY | 2025-04-20 13:46 | XMS_ITS | Clinical Summary ---
Author Organization [facility] Address [address] [place] [address] Care Team Providers Care Imaging Account Manager Name Role Phone Armaan Stafford DO Unavailable [phone] Nelsy Casey APRN Primary Care Provider [phone] Jg Russo MD Unavailable [phone] Allergies Active Allergy Reactions Criticality Noted Date [...] of 2) 2013 [facility]-Pap Smear 04/05/2024 04/05/2021 [id number]-49 Vaccine ( - 2023- season) 2025 [facility]-Influenza [...] 11:04 AM EDT) Case Report Cytology Case: [id number] Authorizing Provider: Zulay Rivera MD Collected: 04/05/2021 1104 Ordering Location: [facility] Gynecology Received: 04/08/2021 0944 First Screen: LEE Kennedy Pathologist: Sonny Andrade MD Specimen: ThinPrep Pap Test, Liquid-Based Cervical/Vaginal, CERVICAL/VAGINAL 04/22/2021 4:46 PM EDT [facility] Interpretation LOW GRADE SQUAMOUS INTRAEPITHELIAL LESION (LSIL)(A) 04/22/2021 4:46 PM EDT [facility] at 1646 EDT Other Findings Shift in yuliet suggestive of bacterial vaginosis. 04/22/2021 4:46 PM EDT [facility] Specimen Adequacy Satisfactory for evaluation; endocervical/lopez [...] results is suggested (please call Microbiology at [phone] for results). 04/22/2021 4:46 PM EDT [facility] Menstrual Status Post-Menopausal 10/2020 4:46 PM EDT [facility] Contraceptive History Not Applicable 04/22/2021 4:46 [address] [facility] Last Menstrual Period 04/05/2002 04/22/2021 4:46 PM EDT [facility] Screening Type Routine Screen 2020 4:46 PM EDT [facility] High Risk? No 04/22/2021 4:46 [address] [facility] HPV Testing Requested? Request HPV Testing Regardless of Pap Test Findings 04/22/2021 4:46 [address] [facility] Previous Cancer History Yes 04/22/2021 4:46 PM EDT HEALTHCARE LAB Comment:Rectal Treatment History Chemotherapy Radiation Therapy 04/22/2021 4:46 PM EDT [facility] Swab Vaginal and cervical cytologic material / Unknown Non-blood Collection / Unknown 04/05/2021 11:04 AM EDT 04/08/2021 9:44 AM EDT Zulay Rivera MD LAB CYTOLOGY ORDERABLES Final Result [facility] [address] [place] [address] from Last 3 Months or Most Recently Relevant to Health Maintenance Insurance [employer] Care Teams Imaging Account Manager Relationship Specialty Start Date End Date Nelsy Casey, EARTHMOVING LABOURER [address] [place] [id number] PCP - General 04/11/21 Armaan Stafford DO [address] [place] [address] Referring Physician 04/05/21 Jg Russo MD [address] [address] Surgeon Colon and Rectal Surgery 06/05/21
== END 2025-04-20 23:59 | disposition home or self-care (01) ==
LOC: LAB 13:44
PROVIDERS: PCP Nurse Practitioner Family; Visit Provider Internal Medicine
DX: I10 Essential (primary) hypertension (principal); E78.49 Other hyperlipidemia
CPT/HCPCS: 82384; 83835; 84585

== ENCOUNTER 2025-05-02 14:54 | Outpatient (CLI) | payer MEDICAID, SELFPAY ==
--- NOTE | 2025-05-02 | CA_ITS ---
APPROVED REPORT Exam: Exercise Treadmill Technologist: Yulissa Savage Stress Nurse: HODAN Johnson, RN Ht: 5 ft 5 in Wt: 136 lbs BSA: 1.68 m2 HR: 83 bpm BP: 159/76 mmHg Indications: Abnormal EKG, Chest Pain Stress Test Details Test: Exercise stress testing was performed using a Owen protocol. HR Resting HR: 83 bpm Max Heart Rate (APMHR): 159 bpm Max HR Achieved: 140 bpm Target HR (85% APMHR): 135 bpm % of APMHR: 88 Recovery HR: 91 bpm HR response to stress: Normal HR response to stress BP Resting BP: 159.0/76.0 mmHg Max BP: 160.0/66.0 mmHg Recovery BP: 157.0/61.0 mmHg BP response to stress: Normal blood pressure response to stress. ECG Resting ECG: Sinus rhythm, baseline T-wave changes Stress EC.[address] depression Stress ECG Conclusion Stress echocardiogram Test stopped at 2:15 minutes due to worsening dyspnea. Patient requested to stop test. Target heart rate achieved. Symptoms: Dyspnea Arrhythmias/Ectopy: None ST-T Changes: Less than 0.[address] segment changes. Electronically signed by : Merle Turner MD 05/03/2025 12:38:19
--- OUTSIDE RECORDS SUMMARY | 2025-05-02 14:56 | XMS_ITS | Clinical Summary ---
Author Organization [facility] Address [address] [place] [address] Care Team Providers Care Knockdown Man Name Role Phone Armaan Stafford DO Unavailable [phone] Nelsy Casey APRN Primary Care Provider [phone] Jg Russo MD Unavailable [phone] Allergies Active Allergy Reactions Criticality Noted Date [...] of 2) 2013 [facility]-Pap Smear 04/05/2024 04/05/2021 [id number] Vaccine ( - 2023- season) 2025 [facility]-Influenza [...] 11:04 AM EDT) Case Report Cytology Case: [id number] Authorizing Provider: Zulay Rivera MD Collected: 04/05/2021 1104 Ordering Location: [facility] Gynecology Received: 04/08/2021 0944 First Screen: LEE Kennedy Pathologist: Sonny Andrade MD Specimen: ThinPrep Pap Test, Liquid-Based Cervical/Vaginal, CERVICAL/VAGINAL 04/22/2021 4:46 PM EDT [facility] Interpretation LOW GRADE SQUAMOUS INTRAEPITHELIAL LESION (LSIL)(A) 04/22/2021 4:46 PM EDT [facility] at 1646 EDT Other Findings Shift in yuleit suggestive of bacterial vaginosis. 04/22/2021 4:46 PM EDT [facility] Specimen Adequacy Satisfactory for evaluation; endocervical/lopez [...] results is suggested (please call Microbiology at [phone] for results). 04/22/2021 4:46 PM EDT [facility] Menstrual Status Post-Menopausal 10/2020 4:46 PM EDT [facility] Contraceptive History Not Applicable 04/22/2021 4:46 PM EDT [facility] Last Menstrual Period 04/05/2002 04/22/2021 4:46 PM EDT [facility] Screening Type Routine Screen 2020 4:46 PM EDT [facility] High Risk? No 04/22/2021 4:46 PM EDT [facility] HPV Testing Requested? Request HPV Testing Regardless of Pap Test Findings 04/22/2021 4:46 PM EDT [facility] Previous Cancer History Yes 04/22/2021 4:46 PM EDT [facility] Comment:Rectal Treatment History Chemotherapy Radiation Therapy 04/22/2021 4:46 PM EDT [facility] Swab Vaginal and cervical cytologic material / Unknown Non-blood Collection / Unknown 04/05/2021 11:04 AM EDT 04/08/2021 9:44 AM EDT Zulay Rivera MD LAB CYTOLOGY ORDERABLES Final Result [facility] [address] [place] [address] from Last 3 Months or Most Recently Relevant to Health Maintenance Insurance TIARA Care Teams Knockdown Man Relationship Specialty Start Date End Date Nelsy Casey, DATA COORDINATOR [address] [place] [id number] PCP - General 04/11/21 Armaan Stafford DO [address] [place] [address] Referring Physician 04/05/21 Jg Russo MD [address] [address] Surgeon Colon and Rectal Surgery 06/05/21
--- OUTSIDE RECORDS SUMMARY | 2025-05-02 14:56 | XMS_ITS | Encounter Summary ---
Author Organization [facility] nter Address [address] [place] [address] Care Team Providers Care Support Merchandiser Name Role Phone Irina Samantha Ferrer DRAWING HAND Primary Care Provider [phone] Maria Teresa aBi Unavailable Unavailable Karen Sparks MD Unavailable [phone] Maria Ines Douglas DRAWING HAND Primary Care Provider [phone] Encounter Details Date Type Department Care Team (Late st Contact Info) Description 01/28/2023 Telephone [facility] [address] [place] [id number] Fina Fajardo, RN [address] [place] [address] Social History Tobacco Use Types Packs/Day Years [...] documented as of this encounter Care Teams Support Merchandiser Relationship Specialty Start Date End Date Samantha Arevalo NP [address] [place] [address] PCP - General Family Medicine 01/16/23 06/12/24 Maria Ines Douglas NP [address] [place] [address] PCP - General Family Medicine 06/13/24 Maria Teresa Bai [address] [place] [address] Nurse Navigator 04/03/23 Karen Sparks MD [address] [facility] [address] [place] [address] Consulting Physician Oncology 04/23/23 documented as of this encounter
--- OUTSIDE RECORDS SUMMARY | 2025-05-02 14:56 | XMS_ITS | Clinical Summary ---
Author Organization [facility] nter Address [address] [place] [address] Care Team Providers Care Belting Inspector Name Role Phone Maria Teresa Bai Unavailable Unavailable Karen Sparks MD Unavailable [phone] Maria Ines Douglas NP Primary Care Provider [phone] Allergies Active Allergy Reactions Criticality Noted Date Comments Enoxaparin 01/06/2023 Medications levothyroxine (Synthroid, Levoxyl) 200 MCG tablet Take 1 tablet (200 mcg) by mouth before breakfast. Take day of surgery Active ibuprofen 800 MG tablet Take 1 tablet (800 mg) by mouth every 6 (six) hours if needed for mild pain (1-4). Hold day of surgery Active multivitamin-ir eu-ejlsbmze-ull ic acid (Centrum) chewable tablet Chew 1 [...] Hold day of surgery Active HYDROcodone-lauro taminophen (Stevinson) 5-325 MG tablet Take 1 tablet by mouth every 6 (six) hours if needed for severe pain (8-10). 30 tablet 3 Active Additional Information Patient not taking.Reported on 06/13/2024 amoxicillin-cla vulanate (Augmentin) 875-125 MG tablet Take 1 tablet by mouth in the morning and at bedtime. 3 Active ergocalciferol (Vitamin D-2) 1.25 MG (20808 UT) capsule Take 1 capsule (1.25 mg) by mouth 1 (one) time per week. Active Active Problems Problem Noted Date Diagnosed Date History of anal cancer 05/19/2023 Abscess 04/08/2023 Malignant neoplasm of overla pping sites of right breast in female, estrogen receptor positive 03/16/2023 Cancer Staging:Pathologic stage from 03/20/2023:Stage IA(pT1a, pN0(sn), cM0, G2, ER+, ND+, HER2-) - Signed by Karen Sparks MD on 05/19/2023 Clinical stage from 05/11/2024:Stage IA(cT1b, cN0, cM0, G2, ER+, ND+, HER2-) - Signed by Rodrigo Diana MD [...] 04/09/2023 How often do you attend chur or jehovah's witness services? More than 4 times per year 04/09/2023 Do you belong to any clubs o r organizations such as buddhism groups, unions, fraternal or athletic groups, or [...] care, and heating? Not very hard 04/09/2023 Exercise Vital Sign Answer Date Recorde [...] RN 04/13/23 8:25 AM 04/08/2023 04/08/2023 Insurance * Guarantor: Anjelica Ulrich Account Type Relation to Patient Date of Phone Billing Address Personal/Family Self 1965 [phone] (Work) [id number] [place] [address] MEDICAID Advance Directives * Full Code (Latest [...] 10:05 AM 01/16/2023 1:53 PM Care Teams Belting Inspector Relationship Specialty Start Date End Date Maria Ines Douglas NP [address] [place] [address] [place] [address] PCP - General Family Medicine 06/13/24 Maria Teresa Bai [address] [place] [address] Nurse Navigator 04/03/23 Karen Sparks MD [address] [place] [address] Consulting Physician Oncology 04/23/23
--- OUTSIDE RECORDS SUMMARY | 2025-05-02 14:56 | XMS_ITS ---
Author Organization [facility] nter Address [address] [place] [address] Care Team Providers Care Project Management Instructor Name Role Phone Maria Teresa Bai Unavailable Unavailable Karen Sparks MD Unavailable [phone] Maria Ines Douglas NP Primary Care Provider [phone] Active Problems Problem Noted Date Diagnosed Date [...]
--- OUTSIDE RECORDS SUMMARY | 2025-05-02 14:56 | XMS_ITS | Encounter Summary ---
Author Organization [facility] Address [address] [place] [address] Care Team Providers Care China And Silverware Salesperson Name Role Phone Armaan Stafford DO Unavailable [phone] Edgar Bishop MD Primary Care Provider [phone] Nelsy Casey APRN Primary Care Provider [phone] Jg Russo MD Unavailable [phone] Encounter Details Date Type Department Care Team (Late st Contact Info) Description 03/29/2021 Lab Requisition [facility] [address] [place] [address] Jg Russo MD [address] [facility] [address] [place] [id number] Other specified diseases of anus and rectum [...] EDT) Case Report [facility] Path[facility] Consult Case: [id number] Authorizing Provider: Jg Russo MD Collected: 03/29/2021 1110 Ordering Location: [facility] Lab Received: 03/29/2021 1111 Pathologist: Vladislav Nur MD Specimen: Perineal Biopsy, [id number] 04/03/2021 4:43 PM EDT [facility] Final Diagnosis PERIANAL MASS, BIOPSY (OUTSIDE: [id number], COLLECTION: 01/18/2021): - INVASIVE SQUAMOUS CELL CARCINOMA, WITH BASALOID FEATURES 04/03/2021 4:43 PM EDT [facility] at 1643 EDT Clinical Information Perianal mass 04/03/2021 4:43 PM EDT [facility] Microscopic Description The submitted P16 immunohistochemical stain is interpreted as positive (diffuse, block-like). Controls are adequate. 04/03/2021 4:43 PM EDT [facility] Gross Description A. [id number] Received along with a corresponding pathology report from [facility] are 2 slide(s) labeled outside case: [id number] collected on 01/18/2021. 04/03/2021 4:43 PM EDT [facility] Tissue Structure of perineal body / Unknown 03/29/2021 11:10 AM EDT 03/29/2021 11:11 AM EDT us Jg Russo MD LAB PATHOLOGY ORDERABLES Fin al Result Performing Organization Address City/State/[facility] Co de Phone Number [facility]ALTHCARE LAB [address] [place] [address] documented in this encounter Visit Diagnoses Diagnosis Other specified diseases of anus and rectum documented in this encounter Care Teams China And Silverware Salesperson Relationship Specialty Start Date End Date Edgar Bishop MD [address] [place] [address] PCP - General 04/05/21 04/10/21 Nelsy Casey APRN [address] [place] [address] [address] [place] [phone] PCP - General 04/11/21 Armaan Stafford DO [address] [place] [address] Referring Physician 04/05/21 Jg Russo MD [address] [phone] Surgeon Colon and Rectal Surgery 06/05/21 documented as of this encounter
--- OUTSIDE RECORDS SUMMARY | 2025-05-02 14:56 | XMS_ITS | Encounter Summary ---
Author Organization [facility] Address [address] [place] [address] Care Team Providers Care Remote Sensing Technologist Name Role Phone Armaan Stafford DO Unavailable [phone] Edgar Bishop MD Primary Care Provider [phone] Nelsy Casey APRN Primary Care Provider [phone] Jg Russo MD Unavailable [phone] Encounter Details Date Type Department Care Team (Late st Contact Info) Description 04/03/2021 Lab Requisition [facility] [address] [place] [address] Jg Russo MD [address] [facility] [address] [place] [id number] Polyp of colon Social History Tobacco Use [...] EDT) Case Report [facility] Pathology Consult Case: [id number] Authorizing Provider: Jg Russo MD Collected: 04/03/2021 1158 Ordering Location: [facility] Lab Received: 04/03/2021 1200 Pathologist: Margarette Carrasquillo MD Specimens: A) - Colon, [id number] B) - Rectal, S2 C) - Rectal, [id number] 1 5:53 PM EDT [email or web address] Final Diagnosis A. OUTSIDE CASE [id number]; 02/06/2017: ASCENDING COLON POLYP, BIOPSY (SPECIMEN 1): - TUBULAR ADENOMA. - NEGATIVE FOR HIGH GRADE DYSPLASIA. TRANSVERSE COLON POLYP, BIOPSY (SPECIMEN 2): - HYPERPLASTIC POLYP. B. OUTSIDE CASE [id number]; 10/01/2020: TRANSVERSE COLON POLYP, BIOPSY (SPECIMEN 1): - HYPERPLASTIC POLYP. RECTAL POLYP, BIOPSY (SPECIMEN 2): - HYPERPLASTIC POLYP. C. OUTSIDE CASE [id number]; 12/12/2020: DISTAL ANAL RECTAL MASS, BIOPSY (SPECIMEN 1): - ATYPICAL EPITHELIOID PROLIFERATION WITH SIGNIFICANT CAUTERY ARTIFACT, SEE NOTE. DISTAL ANAL RECTAL MASS, BIOPSY (SPECIMEN 2): - HYPERPLASTIC SURFACE CHANGES AND CAUTERY ARTIFACT. 1 5:53 PM EDT [facility] at 1753 EDT Comment Block 1FS (case [id number]) shows irregular nests of epithelial-appea ring cells [...] along with a corresponding pathology report from [facility] are 2 slides labeled outside case: [id number] collected on 02/06/2017. B. [id number] Received along with a corresponding pathology report from [facility] are 2 slides labeled outside case: [id number] collected on 10/01/2020. C. [id number] Received along with a corresponding pathology report from [facility] are 3 slides labeled outside case: [id number] collected on 12/12/2020. 1 5:53 PM EDT [facility] Intradepartmental Consultation with Agreement Dr. Vladislav Nur and Dr. Margret Bradford have reviewed case [id number] and agree with the diagnosis of atypia. [...] ORDERABLES Fin al Result Performing Organization Address City/State/[facility] Co de Phone Number HEALTHCARE LAB [address] [place] [address] documented in this encounter Visit Diagnoses Diagnosis Polyp of colon Benign neoplasm of colon documented in this encounter Care Teams Remote Sensing Technologist Relationship Specialty Start Date End Date Edgar Bishop MD [address] [place] [address] PCP - General 04/05/21 04/10/21 Nelsy Casey APRN [address] [place] [address] [address] [place] [phone] PCP - General 04/11/21 Armaan Stafford DO [address] [place] [address] Referring Physician 04/05/21 Jg Russo MD [address] [address] Surgeon Colon and Rectal Surgery 06/05/21 documented as of this encounter
--- NOTE | 2025-05-02 15:00 | CA_ITS ---
APPROVED REPORT EXAM: Comprehensive 2D, Doppler, and color-flow Echocardiogram Sweeper Cleaner Industrial: RT Oswaldo(R) Ht: 5 ft 5 in Wt: 136lbs BSA: 1.68 BP: 159/87 mmHg Indications: abn EKG, chest pain, shortness of breath Echo Procedure The patient underwent an Exercise Stress Test using the Owen Protocol. Blood pressure, heart rate, and EKG were monitored. An Echocardiogram was performed by instrument technician in four stages in quad fashion. At peak stress, four selected images were obtained and placed side by side with resting images for comparison. Stress Test Details Test: Exercise stress testing was performed using a Owen protocol. HR Resting HR: 83 bpm Max Heart Rate (APMHR): 159 bpm Max HR Achieved: 140 bpm Target HR (85% APMHR): 135 bpm % of APMHR: 88 Recovery HR: 91 bpm HR response to stress: Normal HR response to stress BP Resting BP: 159/76 mmHg Max BP: 160/66 mmHg BP response to stress: Normal blood pressure response to stress. ECG Echo Findings The Pre-Stress Echocardiogram showed normal left ventricular contractility with an estimated Ejection Fraction of about 55%. The Post-Stress Echocardiogram showed normal left ventricular contractility with an estimated Ejection Fraction of about 65%. No regional wall motion abnormalities were noted. Other Information Study Quality: Fair Conclusion Appropriate LV systolic function augmentation at peak stress. No evidence of regional wall motion abnormalities at peak stress. CONCLUSION Normal stress echocardiogram. Electronically signed by : Merle Turner MD 05/11/2025 00:01:29
[2025-05-02 15:20] VITALS: BP 159/76; PULSE 83; RESP 14
== END 2025-05-02 23:59 | disposition home or self-care (01) ==
LOC: RT 14:54
PROVIDERS: PCP Nurse Practitioner Family; Visit Provider Nurse Practitioner Family
DX: R94.31 Abnormal electrocardiogram [ECG] [EKG] (principal); R07.89 Other chest pain; R06.02 Shortness of breath
CPT/HCPCS: 93017; 93018; 93350